=== PATIENT | female | born 1935 | race Caucasian/White ===

== ENCOUNTER → 2019-05-10 | Day surgery (SDC) | payer MEDICARE ==
[~2019-05-10] MED LIST: ATORVASTATIN CA20 MG PO; LIDOCAINE HCL 2% LOCAL INJ 5 ML SDV VIAL INJ ONE; LOSARTAN PO; MELOXICAM7.5 MG PO; METHYLPREDNISOLO4 MG PO; OXYBUTYNIN CHLOR5 MG PO; PANTOPRAZOLE 40 MG 10ML VIAL ONE; PROPOFOL IV EMULSION 10 MG/ML 20 ML VIAL ONE; PROPOFOL IV EMULSION 10 MG/ML 50 ML VIAL ONE; SODIUM CHLORIDE 0.9% 50ML 50 ML ONE
[2019-05-10 10:15] VITALS: BP 158/94
--- NOTE | 2019-05-10 11:23 | Operative Report ---
DATE OF PROCEDURE: 05/10/2019 SURGEON: Cody Thornton MD PROCEDURE PERFORMED: EGD with biopsies and esophageal dilatation. INDICATION FOR EGD: Dysphagia to solids. MEDICATIONS: The patient was done under MAC, please see anesthesiologist's note. PROCEDURE IN DETAIL: With the patient in left lateral decubitus position, a flexible fiberoptic Olympus gastroscope was introduced into the esophagus under direct visualization without any difficulty. There was some diffuse erythema noted in the distal esophagus. A mild stricture was noted at the GE junction that was dilated to size 52-[place]. The scope was then advanced with ease into the stomach. Several minute gastric ulcers were noted in the antrum, none of which was actively bleeding and there were no stigmata of recent hemorrhage. Biopsies were obtained. Pylorus was of normal contour and shape and was intubated with ease and the scope was advanced all the way to the second portion of the duodenum. The scope was then withdrawn slowly and mucosa overlying the second portion and duodenal bulb appeared to be within normal limits. The scope was then withdrawn back into the stomach and mucosa overlying the body was diffusely erythematous and edematous. Some biopsies were obtained and sent to stain for H pylori. The scope was then retroflexed into the stomach and mucosa overlying the fundus and cardia appeared to be within normal limits. The scope was then straightened out and was subsequently withdrawn. The patient tolerated the procedure well. IMPRESSION: 1. Distal esophagitis. 2. 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 3. Gastritis, biopsied. Biopsies sent to stain for H pylori. 4. Gastric ulcers, antrum, minute without active bleeding or stigmata of recent hemorrhage. Biopsies obtained. PLAN: Follow up histology. Initiate Protonix 40 mg one p.o. q.a.m. a.c. Cody Thornton MD [facility] [place]/[facility] /[id number] cc: Magnus Thornton MD
== END | disposition home or self-care (01) ==
LOC: OR 06:17 → EDBD 07:30
PROVIDERS: ATTEND Internal Medicine Gastroenterology
DX: K22.2 Esophageal obstruction (principal); K29.50 Unspecified chronic gastritis without bleeding; K25.9 Gastric ulcer, unspecified as acute or chronic, without hemorrhage or perforation; K20.9 Esophagitis, unspecified; R13.10 Dysphagia, unspecified; R12 Heartburn; R14.0 Abdominal distension (gaseous); R10.9 Unspecified abdominal pain; K59.09 Other constipation; R19.7 Diarrhea, unspecified; I10 Essential (primary) hypertension; Z01.810 Encounter for preprocedural cardiovascular examination
CPT/HCPCS: 43239; 43450; 88305; 88312; 88342; 93005; C9113; J2001; J2704 ×2

== ENCOUNTER → 2019-09-13 | Outpatient (CLI) | payer MEDICARE ==
[~2019-09-13] MED LIST changes: -LIDOCAINE HCL 2% LOCAL INJ 5 ML SDV VIAL INJ ONE; -PANTOPRAZOLE 40 MG 10ML VIAL ONE; -PROPOFOL IV EMULSION 10 MG/ML 20 ML VIAL ONE; -PROPOFOL IV EMULSION 10 MG/ML 50 ML VIAL ONE; -SODIUM CHLORIDE 0.9% 50ML 50 ML ONE
--- NOTE | 2019-09-13 11:11 | Diagnostic Imaging Report ---
EXAMINATION: CHEST 2 VIEWS INDICATION: Cough COMPARISON: None FINDINGS: LINES/TUBES:None LUNGS:Patchy airspace opacity at the left lower lobe and lingula partially silhouetting the left heart border and left hemidiaphragm. PLEURA:No pleural effusion or pneumothorax. MEDIASTINUM:The heart is enlarged. Atherosclerotic calcifications of the thoracic aorta. BONES/SOFT TISSUES:No acute osseous injury. ABDOMEN:No free air under the diaphragm. IMPRESSION: Left lingular and lower lobe opacity concerning for aspiration and/or pneumonia in the proper clinical setting. Cardiomegaly. RECOMMENDATIONS: PA and lateral chest radiograph in 6-8 weeks to assess for resolution and exclude underlying pulmonary lesion. The above findings were discussed with Dr. Thornton on 09/13/2019 11:03 AM, who responded indicating that the communication was understood. Signed by: Perfecto White MD on 09/13/2019 11:07 AM
== END ==
LOC: RAD 10:26
DX: R05 Cough (principal)
CPT/HCPCS: 71046

== ENCOUNTER → 2019-09-27 | Outpatient (CLI) | payer MEDICARE ==
--- NOTE | 2019-09-27 11:20 | Diagnostic Imaging Report ---
EXAMINATION: CHEST 2 VIEWS INDICATION: Cough COMPARISON: Chest radiograph 09/13/19. FINDINGS: LINES/TUBES:None LUNGS:Patchy airspace opacity at the left lower lobe and lingula partially silhouetting the left heart border and left hemidiaphragm. Mild patchy right basilar opacity. Central vascular congestin without pulmonary edema. PLEURA:No pleural effusion or pneumothorax. MEDIASTINUM:The heart is enlarged. Atherosclerotic calcifications of the thoracic aorta. BONES/SOFT TISSUES:No acute osseous injury. ABDOMEN:No free air under the diaphragm. IMPRESSION: Similar appearance of lower lung zone opacities, left greater than right, which may represent pneumonia in the appropriate clinical setting. Recommend follow-up chest radiograph in 6-8 weeks to assess for resolution. Cardiomegaly and central vascular congestion without pulmonary edema. Signed by: Dr. Kamar Duffy MD on 09/27/2019 11:16 AM
== END ==
LOC: RAD 10:12
DX: J18.9 Pneumonia, unspecified organism (principal)
CPT/HCPCS: 71046

== ENCOUNTER → 2019-11-20 | Outpatient (CLI) | payer MEDICARE ==
[~2019-11-20] MED LIST changes: +GADOBENATE DIMEGLUMINE 1 ML IV ONE
--- NOTE | 2019-11-20 10:36 | Diagnostic Imaging Report ---
EXAMINATION: MRI of the brain with and without contrast HISTORY: Evaluate for brain metastases, lung mass. COMPARISON: None. TECHNIQUE: Pre-contrast: Sagittal T2; axial T1-IR, T2, MPGR, DWI, FLAIR; Post-contrast: axial and coronal T1. Intravenous contrast: 10 mL of MultiHance. IMAGE QUALITY: Magnetic susceptibility artifact in the left superior parietal scalp mildly limits evaluation of some of the sequences. Poor visualization of the intravenous contrast, even though the contrast injection was uneventful , this partially may be explained by above-mentioned magnetic susceptibility artifact with incomplete fat saturation on the postcontrast images. FINDINGS: Parenchyma: 1. A few scattered white matter T2 and FLAIR hyperintense foci, most likely nonspecific chronic microvascular changes. No abnormal enhancement. 2. No mass or hemorrhage. No acute or chronic vascular insult. Skull: No abnormal signal intensity or enhancement. Major arteries: Expected flow voids present. Dural sinuses: Expected flow voids present. Ventricles: No hydrocephalus or displacement. Subarachnoid spaces: No abnormal signal intensity or enhancement. Brain volume: Slightly disproportionate bilateral parietal cortical volume loss. Otherwise within normal limits for patient's age. Foramen magnum: No mass, Chiari malformation, or basilar invagination. Sella: No gross mass, particularly no hypoenhancing foci within the pituitary gland. Paranasal/mastoid sinuses: Unremarkable. IMPRESSION: 1. No evidence of metastatic disease. 2. Mild nonspecific white matter chronic microvascular ischemic changes. 3. Slightly disproportionate bilateral parietal volume loss. Signed by: Dr. Ashley Butterfield M.D. on 11/20/2019 10:33 AM
== END ==
LOC: MRI 07:43
PROVIDERS: ATTEND Internal Medicine Critical Care Medicine
DX: C34.90 Malignant neoplasm of unspecified part of unspecified bronchus or lung (principal); R22.0 Localized swelling, mass and lump, head; C79.31 Secondary malignant neoplasm of brain
CPT/HCPCS: 70553; A9577

== ENCOUNTER → 2019-11-27 | Outpatient (CLI) | payer MEDICARE ==
[~2019-11-27] MED LIST changes: -GADOBENATE DIMEGLUMINE 1 ML IV ONE
[2019-11-27 13:21] LABS: INR 1.22; PROTHROMBIN TIME 16.2 seconds (11.9-14.5)
[2019-11-27 13:31] LABS: PARTIAL THROMBOPLASTIN TIME 28.1 seconds (23.8-35.5)
--- NOTE | 2019-11-27 14:05 | Diagnostic Imaging Report ---
Exam: Ultrasound guided thoracentesis Clinical History: Pleural effusion Consent: Benefits and risks were explained to the patient who gave consent to the procedure. Complication: None immediate Procedure: The patient was placed in uprightposition. The left posterior chest was prepped and draped in usual sterile fashion. 1% lidocaine was used as local anesthetic. Under ultrasound guidance, a thoracentesis catheter was inserted into the pleural cavity. Approximately 400 cc of clear yellow fluid was aspirated. The catheter was removed. The specimen was sent to the laboratory for further analysis. The patient tolerated the procedure well without any adverse reaction. A STAT chest x-ray was ordered. The patient left the department in stable condition. Impression: Ultrasound guided left thoracentesis. Signed by: Dr. Vignesh Randall MD on 11/27/2019 2:02 PM
--- NOTE | 2019-11-27 15:11 | Diagnostic Imaging Report ---
Exam: Chest one view Comparison: October 17, 2019 Clinical history: Status post thoracentesis Findings: There is persistent severe cardiomegaly with mild bilateral pulmonary vascular congestion. There is no evidence of pneumothorax. Minimal blunting of the left costophrenic sulcus is noted likely due to small effusion. The regional osseous structures are unremarkable. Impression: 1. Persistent cardiomegaly. Signed by: Dr. Vignesh Randall MD on 11/27/2019 3:08 PM
== END ==
LOC: US 12:21
DX: J90 Pleural effusion, not elsewhere classified (principal)
CPT/HCPCS: 32555; 36415; 71045; 85014; 85049; 85610; 85730

== ENCOUNTER → 2020-03-04 | Outpatient (CLI) | payer MEDICARE ==
--- NOTE | 2020-03-04 11:32 | Diagnostic Imaging Report ---
X-ray chest PA and lateral Comparison: 11/27/2019 History: Follow-up pneumonia. Known lung cancer. Findings: There is mild rotation of the patient on the frontal exam. Even accounting for the rotation, there is suggestion of a mediastinal shift to the right. There is further increase in the opacity in the left lower lung zone with obliteration of the left hemidiaphragm and the left cardiac border. There is also obliteration of the descending thoracic aortic interface. Air bronchograms are seen representing the central airways. Irregular lucency in the midst of this opacity suggests presence of aerated lung. There is suggestion of a small left pleural effusion. The remainder of the left upper lung field shows peribronchial thickening and vascular prominence raising the possibility of interstitial edema. The right lung shows peribronchial thickening and redistribution of blood flow suggesting mild interstitial edema. Multiple nodules measuring on the average 10 mm are seen in the right upper mid and lower lung zones. Other tiny nodules are also suspected. Some partially obscured by the pulmonary congestion. The left hilum cannot be evaluated partially obscured by the left lung opacity. The central airways show no mass lesion. With Central airways are unremarkable and unchanged. Heart size is difficult to evaluate because of being obscured. Aortic knob is atherosclerotic. Impression: Further worsening of the left lower lung zone consolidation with likely postobstructive pneumonia and now associated with mediastinal shift to the right. Multiple right lung nodules. The findings overall are consistent with the patient's history of a neoplastic process involving the left lower lung. Signed by: Louis Womack MD on 03/04/2020 11:29 AM
== END ==
LOC: RAD 10:25
DX: J18.9 Pneumonia, unspecified organism (principal); C34.90 Malignant neoplasm of unspecified part of unspecified bronchus or lung
CPT/HCPCS: 71046

== ENCOUNTER → 2020-03-13 | Outpatient (CLI) | payer MEDICARE ==
[~2020-03-13] MED LIST changes: +IOPAMIDOL 370 MG/ML 200 ML INFUS..BTL INJ ONE; +SODIUM CHLORIDE 0.9% 50ML 50 ML ONE
[2020-03-13 09:34] LABS: BLOOD UREA NITROGEN 18 mg/dL (7-26); BUN/CREATININE RATIO 21 (6-25); CREATININE, SERUM 0.85 mg/dL (0.57-1.11); EST GLOMERULAR FILTRATION RATE > 60 ML/MIN (60-)
--- NOTE | 2020-03-13 11:40 | Diagnostic Imaging Report ---
EXAM: CT Chest WITH intravenous contrast 03/13/2020 9:50 AM INDICATION: Lung cancer COMPARISON: Chest radiograph 03/04/2020, chest CT 11/12/2019 TECHNIQUE: Chest was scanned utilizing a multidetector helical scanner from the lung apex through the level of the adrenal glands after administration of IV contrast. Coronal and sagittal reformations were obtained. Routine protocol was performed. IV CONTRAST: 100mL Isovue 370 RADIATION DOSE: Total DLP: 430 mGy*cm. Dose modulation, iterative reconstruction, and/or weight based adjustment of the mA/kV was utilized to reduce the radiation dose to as low as reasonably achievable. COMPLICATIONS: None FINDINGS: LINES/ TUBES: None. LUNGS AND AIRWAYS: The central airways are patent. Again seen is a heterogeneously enhancing infiltrative mass involving the left lower lobe which encases the left lower lobe segmental bronchi. The mass is essentially unchanged in size compared to 11/12/2019. There is now more consolidation at the lingula encasing the lingular segmental bronchi. Additional pulmonary nodules have intervally increased in size, for example at the posterior right lower lobe (image 82) now measuring 1.9 cm compared to 1.7 cm previously and 1.8 cm compared to 1.5 cm (image 72). Additional scattered subcentimeter nodules throughout all lobes have also minimally increased in size. Lower lobe predominant interlobular septal thickening consistent with mild component of interstitial pulmonary edema. PLEURA: Interval increase in left pleural effusion, now moderate. No pneumothorax. HEART AND MEDIASTINUM: The right thyroid lobe appears unremarkable. Left thyroid remains absent. The extent of previously described mediastinal lymphadenopathy appears essentially unchanged. Right hilar lymphadenopathy appears slightly increased, now measuring up to 1.2 cm (image 53). Left hilar lymphadenopathy unchanged. Unchanged multichamber cardiomegaly. No pericardial effusion. Scattered atherosclerotic calcifications involve the thoracic aorta, coronary arteries, and proximal great vessels. UPPER ABDOMEN: New peripherally enhancing centrally hypodense masses in the right and left liver measure up to 1.6 cm and left liver (image 97) and 1.9 cm in the right liver (image 110). Partially visualized retroperitoneal lymphadenopathy measures up to 1.2 cm short axis. BONES: No acute osseous injury. SOFT TISSUES: Unremarkable. IMPRESSION: Redemonstration of heterogeneously enhancing left lower lobe infiltrative mass, now with involvement of the lingula. Interval increase in satellite nodules in the right and left lung, most notably at the posterior right lower lobe. Findings are compatible with progression of provided history of lung adenocarcinoma. New right and left hypodense peripherally enhancing liver masses concerning for metastatic disease. Retroperitoneal lymphadenopathy also concerning for metastasis. Interval increase in left pleural effusion. Cardiomegaly and mild interstitial pulmonary edema. Signed by: Perfecto White MD on 03/13/2020 11:37 AM
== END ==
LOC: CT 08:52
PROVIDERS: ATTEND Internal Medicine Critical Care Medicine
DX: C34.90 Malignant neoplasm of unspecified part of unspecified bronchus or lung (principal)
CPT/HCPCS: 36415; 71260; 82565; 84520; Q9967

== ENCOUNTER → 2020-03-17 | Outpatient (CLI) | payer MEDICARE ==
[~2020-03-17] MED LIST changes: -IOPAMIDOL 370 MG/ML 200 ML INFUS..BTL INJ ONE; -SODIUM CHLORIDE 0.9% 50ML 50 ML ONE
[2020-03-17 13:20] LABS: HEMOGLOBIN 10.6 g/dL (12.0-16.0)
[2020-03-17 13:38] LABS: INR 1.07; PROTHROMBIN TIME 14.6 seconds (11.9-14.5)
--- NOTE | 2020-03-17 15:10 | Diagnostic Imaging Report ---
EXAMINATION: CHEST SINGLE (PORTABLE) INDICATION: Post procedure COMPARISON: Chest CT of 03/13/2020, chest radiograph 03/04/2020 FINDINGS: LINES/TUBES:None LUNGS:The lungs are moderately inflated. There is left basilar opacity silhouetting the left andrei diaphragm. PLEURA:No pneumothorax status post left thoracentesis. MEDIASTINUM:The cardiomediastinal silhouette appears unchanged in size and shape. BONES/SOFT TISSUES:No acute osseous injury. ABDOMEN:No free air under the diaphragm. IMPRESSION: No pneumothorax status post left thoracentesis. Signed by: Perfecto White MD on 03/17/2020 3:07 PM
--- NOTE | 2020-03-17 15:11 | Diagnostic Imaging Report ---
PROCEDURE: Ultrasound-guided thoracentesis Procedural Personnel Attending physician(s): Perfecto White MD Fellow physician(s): None Resident physician(s): None Advanced practice provider(s): None Pre-procedure diagnosis: Lung cancer Post-procedure diagnosis: Same Indication: Pleural effusion with compromised respiration Additional clinical history: None Complications: No immediate complications. IMPRESSION: Ultrasound-guided thoracentesis with drainage of 700 mL of serous fluid. Plan: Resume care by clinical team. PROCEDURE SUMMARY: - Limited thoracic ultrasound - Ultrasound-guided thoracentesis - Additional procedure(s): None PROCEDURE DETAILS: Pre-procedure Consent: Informed consent for the procedure including risks, benefits and alternatives was obtained and time-out was performed prior to the procedure. Preparation: The site was prepared and draped using maximal sterile barrier technique including cutaneous antisepsis. Anesthesia/sedation Level of anesthesia/sedation: No sedation Anesthesia/sedation administered by: Not applicable Total intra-service sedation time (minutes): NA Limited thoracic ultrasound Limited thoracic ultrasound was performed using a curved transducer. A safe window for thoracentesis was identified. Left hemithorax findings: Moderate pleural effusion Right hemithorax findings: Not investigated Thoracentesis Local anesthesia was administered. The pleural space was accessed under real-time ultrasound guidance and fluid return confirmed position. The fluid was drained. The catheter was removed, and a sterile bandage was applied. Catheter placed: 5F Jose Post-drainage hemithorax findings: No visible pleural effusion Additional Details Additional description of procedure: None Equipment details: None Specimens removed: Pleural fluid Estimated blood loss (mL): Less than 10 Standardized report: [id number] Attestation Signer name: Perfecto White MD I attest that I was present for the entire procedure. I reviewed the stored images and agree with the report as written. Signed by: Perfecto White MD on 03/17/2020 3:08 PM
== END ==
LOC: US 12:54
DX: C34.90 Malignant neoplasm of unspecified part of unspecified bronchus or lung (principal)
CPT/HCPCS: 32555; 36415; 71045; 85014; 85049; 85610; 85730

== ENCOUNTER 2020-03-24 09:48 | Inpatient (IN) | payer MEDICARE, OTHER ==
[~2020-03-24] VITALS: Ht 152.4 cm; Wt 53.5 kg
--- OUTSIDE RECORDS SUMMARY | 2020-03-24 09:50 | XMS REPORT | Continuity of Care Document ---
Author Author [facility] t Organization [facility] Address [address] [place] [address] Phone Unavailable Care Team Providers Care Arnp Name Role Phone GERMAN THORNTON MD PCP GERMAN THORNTON Attphys Unavailable Radha BURNHAM Attphys Unavailable GERMAN THORNTON Admphys Unavailable Payers Payer Name Policy Type Policy Number Effective Date Expiration Date Memo ramos [facility] [id number] 2019 00:00:00 [facility] Medicare A & B [id number] 2018 00:00:00 [facility] Problems Condition Name Condition Details Condition Category Status Onset Date Resolution Date Last Treatment Date Treating Clinician Comments Source Pneumonia Pneumonia Problem Active [facility] Allergies, Adverse Reactions, Alerts This patient has no known allergies or adverse reactions. Medications Ordered Medication Name Filled Medication Name Start Date Stop Da te Current Medication? Ordering Clinician Indication Dosage Frequency Signature (SIG) Comments Components Source Atorvastatin Calcium 20 Mg Tablet Atorvastatin Calcium 20 Mg Tablet Yes 20 Bedtime [facility] Losartan Losartan Yes 50 Bedtime [facility] Methylprednisolone 4 Mg Tablet Methylprednisolone 4 Mg Tablet Yes 4 Daily [facility] Oxybutynin Chloride 5 Mg Tablet Oxybutynin Chloride 5 Mg Tablet Yes 10 Bedtime [facility] Meloxicam 7.5 Mg Tablet, 15 Mg Oral Meloxicam 7.5 Mg Tablet, 15 Mg Oral 2019-10-17 00:00:00 No 15 Bedtime [facility] Procedures Procedure Date / Time Performed Performing Clinician [facility] with biopsy 2019-10-17 00:00:00 EVELINE BURNHAM AB IM [facility] X-ray of chest, two views 2019-10-17 00:00:00 EVELINE BURNHAM BIM [facility] Computed tomography of chest with contrast 2019-10-14 00:00:00 GERMAN SANCHEZ [facility] X-ray of chest, two views 2019-10-13 00:00:00 MONALISA SNELL [facility] X-ray of chest, two views 2019-09-27 00:00:00 GERMAN THORNTON [facility] X-ray of chest, two views 2019-09-13 00:00:00 GERMAN THORNTON [facility] EGD BIOPSY SINGLE/MULTIPLE 2019-05-10 00:00:00 DIANE THORNTON [facility] DILATE ESOPHAGUS 1/MULT PASS 2019-05-10 00:00:00 DIANE THORNTON [facility] Encounters Start Date/Time End Date/Time Encounter Type Admission Type Attendi [facility] Care Department Encounter ID Source 2019-10-13 11:57:00 2019-10-17 19:31:00 Discharged Inpatient 1 [facility] [id number] [facility] 2019-09-27 10:12:00 2019-09-27 10:12:00 Registered Clinic 3 [facility] [id number] [facility] 2019-09-13 10:26:00 2019-09-13 10:26:00 Registered Clinic 3 GERMAN THORNTON [facility] [id number] [facility] 2019-05-10 06:17:00 2019-05-10 06:17:00 Registered Surgical Day Care [facility] [id number] [facility] Results Test Description Test Time Test Comments Results Result Comments Source THORACENTESIS/IMAGE GUIDED 2020-03-17 15:07:00 [facility] [address] [place] [address] Patient Name: BEBE SOTOMAYOR MR #: [id number] : 1935 Age/Sex: 84/F Req #: [id number] Adm Physician: Ordered by: GERMAN THORNTON MD Report #: [id number] Location: Room/Bed: Procedure: US/THORACENTESIS/IMAGE GUIDED Exam Date: 03/17/20 Exam Time: 1347 REPORT STATUS: Signed PROCEDURE: Ultrasound-guided thoracentesis Procedural Personnel Attending physician(s): Renetta Richter MD Fellow physician(s): None Resident physician(s): None Advanced practice provider(s): None Pre-procedure diagnosis: Lung cancer Post-procedure diagnosis: Same Indication: Pleural effusion with compromised respiration Additional clinical history: None Complications: No immediate complications. IMPRESSION: Ultrasound-guided thoracentesis with drainage of 700 mL of serous fluid. Plan: Resume care by clinical team. PROCEDURE SUMMARY: - Limited thoracic ultrasound - Ultrasound-guided thoracentesis - Additional procedure(s): None PROCEDURE DETAILS: Pre-procedure Consent: Informed consent for the procedure including risks, be nefits and alternatives was obtained and time-out was performed prior to the procedure. Preparation: The site was prepared and draped using maximal sterile barrier technique including cutaneous antisepsis. Anesthesia/sedation Level of anesthesia/sedation: No sedation Anesthesia/sedation administered by: Not applicable Total intra-service sedation time (minutes): NA Limited thoracic ultrasound Limited thoracic ultrasound was performed using a curved transducer. A safe window for thoracentesis was identified. Left hemithorax findings: Moderate pleural effusion Right hemithorax findings: Not investigated Thoracentesis Local anesthesia was administered. The pleural space was accessed under real-time ultrasound guidance and fluid return confirmed position. The fluid was drained. The catheter was removed, and a sterile bandage was applied. Catheter placed: 5F Jose Post-drainage hemithorax findings: No visible pleural effusion Additional Details Addit ional description of procedure: None Equipment details: None Specimens removed: Pleural fluid Estimated blood loss (mL): Less than 10 Standardized report: SIR_Thoracentesis_v3 Attestation Signer name: Renetta Richter MD I attest that I was present for the entire procedure. I reviewed the stored images and agree with the report as written. Signed by: Renetta Richter MD on 03/17/2020 3:08 PM Dictated By: RENETTA RICHTER MD 1508 Transcribed By: CARLTON on 03/17/20 1508 COPY TO: GERMAN THORNTON MD CHEST SINGLE (PORTABLE) 2020-03-17 15:06:00 [place] [address] Patient Name: BEBE SOTOMAYOR MR #: [id number] : 1935 Age/Sex: 84/F Req #: [id number] Adm Physician: Ordered by: RENETTA RICHTER MD Report #: [id number] Location: US Room/Bed: Procedure: DX/CHEST SINGLE (PORTABLE) Exam Date: 03/17/20 Exam Time: 1450 REPORT STATUS: Signed EXAMINATION: CHEST SINGLE (PORTABLE) INDICATION: Post procedure COMPARISON: Chest CT of 03/13/2020, chest radiograph 03/04/2020 FINDINGS: LINES/TUBES:None LUNGS:The lungs are moderately inflated. There is left basilar opacity silhouetting the left andrei diaphragm. PLEURA:No pneumothorax status post left thoracentesis. MEDIASTINUM:The cardiomediastinal silhouette appears unchanged in size and shape. BONES/SOFT TISSUES:No acute osseous injury. ABDOMEN:No free air under the diaphragm. IMPRESSION: No pneumothorax status post left thoracentesis. Signed by: Renetta Richter MD on 03/17/2020 3:07 PM Dictated By: RENETTA RICHTER MD 1507 Transcribed By: CARLTON on 03/17/20 1507 COPY TO: RENETTA RICHTER MD CT CHEST W 2020-03-13 11:19:00 [place] [address] Patient Name: BEBE SOTOMAYOR MR #: [id number] : 1935 Age/Sex: 84/F Req #: [id number] Adm Physician: Ordered by: EVELINE BURNHAM MD Report #: [id number] Location: CT Room/Bed: Procedure: [id number] CT/CT CHEST W Exam Date: 03/13/20 Exam Time: 0950 REPORT STATUS: Signed EXAM: CT Chest WITH intravenous contrast 03/13/2020 9:50 AM INDICATION: Lung cancer COMPARISON: Chest radiograph 03/04/2020, chest CT 11/12/2019 TECHNIQUE: Chest was scanned utilizing a multidetector helical scanner from the lung apex through the level of the adrenal glands after administration of IV contrast. Coronal and sagittal reformations were obtained. Routine protocol was performed. IV CONTRAST: 100mL Isovue 370 RADIATION DOSE: Total DLP: 430 mGy*cm. Dose modulation, iterative reconstruction, and/or weight based adjustment of the mA/kV was utilized to reduce the radiation dose to as low as reasonably achievable. COMPLICATIONS: None FINDINGS: LINES/ TUBES: None. LUNGS AND AIRWAYS: The central airways are patent. Again seen is a heterogeneously enhancing infiltrative mass involving the left lower lobe which encases the left lower lobe segmental bronchi. The mass is essentially unchanged in size compared to 11/12/2019. There is now more consolidation at the lingula encasing the lingular segmental bronchi. Additional pulmonary nodules have intervally increased in size, for example at the posterior right lower lobe (image 82) now measuring 1.9 cm compared to 1.7 cm previously and 1.8 cm compared to 1.5 cm (image 72). Additional scattered subcentimeter nodules throughout all lobes have also minimally increased in size. Lower lobe predominant interlobular septal thickening consistent with mild component of interstitial pulmonary edema. PLEURA: Interval increase in left pleural effusion, now moderate. No pneumothorax. HEART AND MEDIASTINUM: The right thyroid lobe appears unremarkable. Left thyroid remains absent. The extent of previously described mediastinal lymphadenopathy appears essentially unchanged. Right hilar lymphadenopathy appears slightly increased, now measuring up to 1.2 cm (image 53). Left hilar lymphadenopathy unchanged. Unchanged multichamber cardiomegaly. No pericardial effusion. Scattered atherosclerotic calcifications involve the thoracic aorta, coronary arteries, and proximal great vessels. UPPER ABDOMEN: New peripherally enhancing centrally hypodense masses in the right and left liver measure up to 1.6 cm and left liver (image 97) and 1.9 cm in the right liver (image 110). Partially visualized retroperitoneal lymphadenopathy measures up to 1.2 cm short axis. BONES: No acute osseous injury. SOFT TISSUES: Unremarkable. IMPRE SSION: Redemonstration of heterogeneously enhancing left lower lobe infiltrative mass, now with involvement of the lingula. Interval increase in satellite nodules in the right and left lung, most notably at the posterior right lower lobe. Findings are compatible with progression of provided history of lung adenocarcinoma. New right and left hypodense peripherally enhancing liver masses concerning for metastatic disease. Retroperitoneal lymphadenopathy also concerning for metastasis. Interval increase in left pleural effusion. Cardiomegaly and mild interstitial pulmonary edema. Signed by: Renetta Richter MD on 03/13/2020 11:37 AM Dictated By: RENETTA RICHTER MD 113 Transcribed By: CARLTON on 03/13/20 113 COPY TO: EVELINE BURNHAM MD, [facility] CHEST 2 VIEWS 2020-03-04 11:18:00 [place] [address] Patient Name: BEBE SOTOMAYOR MR #: [id number] : 1935 Age/Sex: 84/F Req #: [id number] Adm Physician: Ordered by: GERMAN THORNTON MD Report #: [id number] Location: [facility] Room/Bed: Procedure: [id number] DX/CHEST 2 VIEWS Exam Date: 03/04/20 Exam Time: 1050 REPORT STATUS: Signed X-ray chest PA and lateral Comparison: 11/27/2019 History: Follow-up pneumonia. Known lung cancer. Findings: There is mild rotation of the patient on the frontal exam. Even accounting for the rotation, there is suggestion of a mediastinal shift to the right. There is further increase in the opacity in the left lower lung zone with obliteration of the left hemidiaphragm and the left cardiac border. There is also obliteration of the descending thoracic aortic interface. Air bronchograms are seen representing the central airways. Irregular lucency in the midst of this opacity suggests presence of aerated lung. There is suggestion of a small left pleural effusion. The remainder of the left upper lung field shows peribronchial thickening and vascular prominence raising the possibility of interstitial edema. The right lung shows peribronchial thickening and redistribution of blood flow suggesting mild interstitial edema. Multiple nodules measuring on the average 10 mm are seen in the right upper mid and lower lung zones. Other tiny nodules are also suspected. Some partially obscured by the pulmonary congestion. The left hilum cannot be evaluated partially obscured by the left lung opacity. The central airways show no mass lesion. With Central airways are unremarkable and unchanged. Heart size is difficult to evaluate because of being obscured. Aortic knob is atherosclerotic. Impression: Further worsening of the left lower lung zone consolidation with likely postobstructive pneumonia and now associated with mediastinal shift to the right. Multiple right lung nodules. The findings overall are consistent with the patient's history of a neoplastic process involving the left lower lung. Signed by: Louis Lundberg MD on 03/04/2020 11:29 AM Dictated By: LOUIS LUNDBERG MD 112 Transcribed By: CARLTON on 03/04/20 112 COPY TO: GERMAN THORNTON MD CHEST SINGLE (PORTABLE) 2019-11-27 15:07:00 [place] [address] Patient Name: BEBE SOTOMAYOR MR #: [id number] : 1935 Age/Sex: 84/F Req #: [id number] Adm Physician: Ordered by: JANELL RANDALL MD Report #: [id number] Location: US Room/Bed: Procedure: [id number] DX/CHEST SINGLE (PORTABLE) Exam Date: 11/27/19 Exam Time: 1400 REPORT STATUS: Signed Exam: Chest one view Comparison: October 17, 2019 Clinical history: Status post thoracentesis Findings: There is persistent severe cardiomegaly with mild bilateral pulmonary vascular congestion. There is no evidence of pneumothorax. Minimal blunting of the left costophrenic sulcus is noted likely due to small effusion. The regional osseous structures are unremarkable. Impression: 1. Persistent cardiomegaly. Signed by: Dr. Vignesh Randall MD on 11/27/2019 3:08 PM Dictated By: JANELL RANDALL MD 07 Transcribed By: CARLTON on 11/27/191507 COPY TO: JANELL DEL CID MD THORACENTESIS/IMAGE GUIDED 2019-11-27 14:01:00 [place] [address] Patient Name: BEBE SOTOMAYOR MR #: [id number] : 1935 Age/Sex: 84/F Req #: [id number] [facility] Physician: Ordered by: GERMAN THORNTON MD Report #: [id number] Location: Room/Bed: Procedure: [id number] US/THORACENTESIS/IMAGE GUIDED Exam Date: 11/27/19 Exam Time: 1334 REPORT STATUS: Signed Exam: Ultrasound guided thoracentesis Clinical History: Pleural effusion Consent: Benefits and risks were explained to the patient who gave consent to the procedure. Complication: None immediate Procedure: The patient was placed in uprightposition. The left posterior chest was prepped and draped in usual sterile fashion. 1% lidocaine was used as local anesthetic. Under ultrasound guidance, a thoracentesis catheter was inserted into the pleural cavity. Approximately 400 cc of clear yellow fluid was aspirated. The catheter was removed. The specimen was sent to the laboratory for further analysis. The patient tolerated the procedure well without any adverse reaction. A STAT chest x-ray was ordered. The patient left the department in stable condition. Impression: Ultrasound guided left thoracentesis. Signed by: Dr. Vignesh Randall MD on 11/27/2019 2:02 PM Dictated By: JANELL RANDALL MD 01 Transcribed By: CARLTON on 11/27/191401 COPY TO: GERMAN THORNTON MD - [facility] 2019-11-25 16:01:00 FAX: Eveline Ca MD [phone] North: St: REG FAX: Mae Chacko [phone] Name: BEBE SOTOAMYOR [facility] : 1935 Age/S: 84/F [address] [facility] Unit #: [id number] Loc: [place] [address] Phys: Eveline Burnham MD Acct: [id number] Dis Date: Status: REG CLI PHONE #: [phone] Exam Date: 11/25/2019 1115 FAX #: [phone] Reason: C34.90 EXAMS: CPT CODE: [id number] PET/CT TUMOR SK MIDTH 15843 HISTORY: Adenocarcinoma of the lung. COMPARISON: None available. PET/CT SCAN: 11.6 mCi of FDG administered. Images obtained from the skull base to the upper thighs 1 hour postinjection. Blood glucose level = 119 mg/dL. Location: [facility]. HEAD AND NECK: Intense uptake within the brain parenchyma limited evaluation. Physiologic pharyngeal uptake. CHEST: Large area of increased uptake measuring 6.7 x 6 x 7 cm in the left lower lobe with compressive left lower lobe atelectasis and small effusion. SUV range up to 9.5 consistent with primary bronchogenic carcinoma. Multiple left lower lobe lung nodules measuring up to 2 cm with SUV uptake ranging up to 4.5. Extensive pathologic adenopathy measuring up to 1.6 cm in the AP window, right paratracheal and subcarinal location with SUV ranging up to 4.8 consistent with metastases. No chest wall and metastatic disease. No uptake within the breast parenchyma either. ABDOMEN: No liver or adrenal metastases. Extensive uptake along the bilateral abdominal wall especially on the right side in the perihepatic and perisplenic locations measuring up to 5 cm. SUV uptake ranging up to 4. Multiple pathologic retroperi toneal lymph node beginning at the level of the celiac artery measuring up to 2 with SUV ranging up to 4. Similar lymph nodes in the level of the SMA, para-aortic and paracaval location. No abnormal uptake within the spleen or the pancreas. No abnormal uptake within the kidneys. Minimal excretion into the bowel. PELVIS: Minimal excretion into the bowel. Excretion into the urinary bladder. Stasis of radiopharmaceutical within the left ureter MUSCULOSKELETAL: No metastatic disease. IMPRESSION: 7 x 6.7 x 6 cm mass with atelectasis in the left lower lobe with SUV ranging up to 9.5 consistent with patient's adenocarcinoma. Bilateral lower lobe lung nodules measuring up to 2 cm with SUV uptake ranging up to 4 consistent with metastases. Multiple mediastinal metastatic PAGE 1 Signed Report (CONTINUED) FAX: Eveline Ca MD [phone] North: St: REG FAX: Mae Chacko [phone] [facility] : 1935 Age/S: 84/F [address] [facility] Unit #: [id number] Loc: [place] [address] Phys: Eveline Burnham MD Acct: [id number] Dis Date: Status: REG CLI PHONE #: [phone] Exam Date: 11/25/2019 1115 FAX #: [phone] Reason: C34.90 EXAMS: CPT CODE: [id number] PET/CT TUMOR SK BS MIDTH 81891 <Continued> foci measuring up to 1.6 mm with SUV uptake ranging up to 4.8. Multiple retroperitoneal adenopathy at the celiac level, SMA and in the para-aortic and paracaval location measuring up to 2 cm with SUV uptake ranging up to 4. Multiple metastatic foci suspected to the peritoneal lining of the upper abdomen along the perihepatic and perisplenic location measuring up to 5 cm with SUV uptake ranging up to 4. at 1601 Reported and signed by: Bruce Selby M.D. CC: Eveline Burnham MD; Mae Ryan MD Technologist: Pavithra Suarez RT(N) Trnscrd Date/Time/By: 11/25/2019 (1601) : By: [email or web address] Orig Print D/T: S: 11/25/2019 (2067) PAGE 2 Signed Report MRI BRAIN WO 2019-11-20 10:21:00 [place] [address] Patient Name: BEBE SOTOMAYOR MR #: [id number] : 1935 Age/Sex: 84/F Req #: [id number] Adm Physician: Ordered by: EVELINE BURNHAM MD Report #: [id number] Location: MRI Room/Bed: Procedure: [id number] MRI/MRI BRAIN WOW Exam Date: Exam Time: REPORT STATUS: Signed EXAMINATION: MRI of the brain with and without contrast HISTORY: Evaluate for brain metastases, lung mass. COMPARISON: None. TECHNIQUE: Pre-contrast: Sagittal T2; axial T1-IR, T2, MPGR, DWI, FLAIR; Post- contrast: axial and coronal T1. Intravenous contrast: 10 mL of MultiHance. IMAGE QUALITY: Magnetic susceptibility artifact in the left superior parietal scalp mildly limits evaluation of some of the sequences. Poor visualization of the intravenous contrast, even though the contrast injection was uneventful , this partially may be explained by above-mentioned magnetic susceptibility artifact with incomplete fat saturation on the postcontrast images. FINDINGS: Parenchyma: 1. A few scattered white matter T2 and FLAIR hyperintense foci, most likely nonspecific chronic microvascular changes. No abnormal enhancement. 2. No mass or hemorrhage. No acute or chronic vascular insult. Skull: No abnormal signal intensity or enhancement. Major arteries: Expected flow voids present. Dural sinuses: Expected flow voids present. Ventricles: No hydrocephalus or displacement. Subarachnoid spaces: No abnormal signal intensity or enhancement. Brain volume: Slightly disproportionate bilateral parietal cortical volume loss. Otherwise within normal limits for patient's age. Foramen magnum: No mass, Chiari malformation, or basilar invagination. Sella: No gross mass, particularly no hypoenhancing foci within the pituitary gland. Paranasal/mastoid sinuses: Unremarkable. IMPRESSION: 1. No evidence of metastatic disease. 2. Mild nonspecific white matter chronic microvascular ischemic changes. 3. Slightly disproportionate bilateral parietal volume loss. Signed by: Dr. Ashley Butterfield M.D. on 11/20/2019 10:33 AM Dictated By: ASHLEY BUTTERFIELD MD 1033 Transcribed By: CARLTON on 11/20/19 1033 COPY TO: EVELINE BURNHAM MD, ABIM CT CHEST W 2019-11-12 15:18:00 [place] [address] Patient Name: BEBE SOTOMAYOR MR #: [id number] : 1935 Age/Sex: 83/F Req #: [id number] [facility] Physician: Ordered by: GERMAN THORNTON MD Report #: [id number] Location: CT Room/Bed: Procedure: [id number] CT/CT CHEST W Exam Date: 11/12/19 Exam Time: 1410 REPORT STATUS: Signed EXAMINATION: CT scan of the chest with contrast. TECHNIQUE: Spiral CT images of the chest were performed from the lung apices to the level of the adrenal glands after the intravenous administration of 100 cc of Isovue-370. Coronal and sagittal reformatted images were obtained. COMPARISON: CT chest with contrast 10/14/2019 CLINICAL HISTORY:Pneumonia, gangrene, necrosis of the lung DISCUSSION: LINES/TUBES: None. LUNGS AND AIRWAYS: Essentially no significant interval change in consolidation of the majority of the left lower lobe with central areas of hypoattenuation with an adjacent 1.5 cm satellite nodule abutting the lateral pleural surface. Central air bronchograms are noted; however, the distal segmental bronchi are collapsed or filled with debris. Groundglass opacities with interlobular septal thickening involving the superior segment of the left lower lobe are also not significantly changed. Multiple bilateral pulmonary nodules are again noted for example a 6 mm nodule posteriorly within the right upper lobe on series 5 image 36, a 1.5 cm juxtapleural nodule in the medial segment of the right middle lobe (previously 1.2 cm), and a 1.7 cm juxtapleural nodule in the posterior basal segment of the right lower lobe (unchanged in size). Tandem nodules, also juxtapleural, more superiorly within the right lower lobe measure 9 and 10 mm in diameter, previously 6 and 6 mm. There is a new 5 mm nodule an teriorly within the left upper lobe seen on series 5 image 41 and stable bandlike opacity in the inferior lingula. Airways are otherwise normal. PLEURA: Stable moderate intermediate attenuation left pleural effusion (20-25 Hounsfield units), without pleural thickening or enhancement. No pneumothorax. HEART AND MEDIASTINUM: Status post left hemithyroidectomy. No ectasia or aneurysmal dilatation of the thoracic aorta. Great vessel origins are of normal caliber and configuration. Pulmonary outflow tract is of normal caliber. No central pulmonary embolus. Unchanged moderate pericardial effusion without right ventricular compression. Atherosclerotic left main coronary artery calcifications. LYMPH NODES: Hilar and mediastinal lymphadenopathy is slightly more conspicuous compared to prior. For example a highest mediastinal lymph node now measures 7 mm short axis, previously 6 mm. An adjacent lymph node now measures 8 mm short axis, previously 5 mm short axis. A prevascular lymph node measures 8 mm short axis, previously 4 mm. A right upper paratracheal lymph node measures 12 mm short axis, previously 9 mm. A right lower paratracheal lymph node measures 1.5 cm short axis, previously 1.3 cm. ABDOMEN: Visualized portions of the liver, spleen, pancreas, and adrenals are remarkable only for multiple calcified granulomata in the liver. Gastrohepatic lymph nodes have also increased in size in the interim, now measuring 11-12 mm short axis. Lymph nodes adjacent to the SMA origin are also increased in size, now measuring 9 mm and 6 mm short axis, previously 4 and 3 mm. 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 BONES AND SOFT TISSUES: No osseous destructive lesions or focal soft tissue abnormalities. Dystrophic calcifications in the left breast IMPRESSION: Essentially stable appearance of left lower lobe consolidation with centrally hypodense and partially necrotic areas, with associated moderate pleural and pericardial effusions relative to 10/14/2019. Interval marginal increase in size of several bilateral additional pulmonary nodules and interval progression of mediastinal and subdiaphragmatic/upper abdominal lymphadenopathy. 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 Correlation with bronchoscopic results including any tissue diagnosis obtained on 10/17/2019 is suggested. Signed by: Dr. Angelia Gandara M.D. on 11/12/2019 3:41 PM Dictated By: ANGELIA GANDARA MD 40 Transcribed By: CARLTON on 11/12/191540 COPY TO: GERMAN THORNTON MD FLUORO ASIST LITHO/BRONCH/ERCP 2019-10-18 09:04:00 [place] [address] Patient Name: BEBE SOTOMAYOR MR #: [id number] : 1935 Age/Sex: 83/F Req #: [id number] Adm Physician: GERMAN THORNTON MD Ordered by: EVELINE BURNHAM MD Report #: [id number] Location: [facility] Room/Bed: [facility] Procedure: [id number] DX/FLUORO ASIST LITHO/BRONCH/ERCP Exam Date: 10/17/19 Exam Time: 1103 REPORT STATUS: Signed EXAMINATION: FLUORO ASIST LITHO/BRONCH/ERCP INDICATION: Left lower lobe lesion COMPARISON: None FINDINGS: Fluoro Time: 41 seconds Total Dose 14.2 mGy Fluoroscopic guidance was provided for bronchoscopy/left lower lobe biopsy. Images show bronchoscope projecting over the left lower lung. IMPRESSION: Fluoroscopic guidance for bronchoscopy as above. Signed by: Renetta Richter MD on 10/18/2019 9:08 AM Dictated By: RENETTA RICHTER MD 7 Transcribed By: CARLTON on 10/18/19907 COPY TO: EVELINE BURNHAM MD, [facility] CHEST 2 VIEWS 2019-10-17 18:35:00 [place] [address] Patient Name: BEBE SOTOMAYOR MR #: [id number] : 1935 Age/Sex: 83/F Req #: [id number] Adm Physician: GERMAN THORNTON MD Ordered by: EVELIEN BURNHAM MD Report #: [id number] Location: MED/SURG3 Room/Bed: [facility] Procedure: [id number] DX/CHEST 2 VIEWS Exam Date: Exam Time: REPORT STATUS: Signed EXAMINATION: CHEST 2 VIEWS INDICATION: s/p thoracentesis, loculations remnant surmised COMPARISON: 10/17/2019 at 1238 hours. FINDINGS: TUBES and LINES: Left PICC line terminates at the superior cavoatrial junction LUNGS: There is mild prominence of the central pulmonary vasculature, consistent with pulmonary venous congestion. PLEURA: No pneumothorax. Slight decrease in density in the lower left hemithorax may reflect status post thoracentesis. HEART AND MEDIASTINUM: Cardiac size is moderately enlarged. BONES AND SOFT TISSUES: No acute osseous lesion. Soft tissues are unremarkable. UPPER ABDOMEN: No free air under the diaphragm. IMPRESSION: No pneumothorax. Slight decrease in density in the lower left hemithorax may reflect status post thoracentesis. Signed by: Dr. Celia Harrison M.D. on 10/17/2019 6:38 PM Dictated By: DRU HARRISON MD, MD 37 Transcribed By: CARLTON on 10/17/191837 COPY TO: EVELINE BURNHAM MD, ABIM Sodium Level 2019-10-17 13:19:00 Test Item Sodium Level (test code = 2951-2) 137 136-145 [facility] Bcgop3607-94-03 13:19:00* Test Item Value Reference Range Interpretation Comments Potassium Level (test code = 2823-3) 3.9 3.5-5.1 [facility] CampusChloride Cunxp6382-64-23 13:19:00* Test Item Value Reference Range Interpretation Comments Chloride Level (test code = 2075-0) 103 98-107 [facility] CampusCarbon Dioxide Szlqu9033-18-79 13:19:00* Test Item Value Reference Range Interpretation Comments Carbon Dioxide Level (test code = 2028-9) 22 22-29 [facility] CampusAnion Ekg4128-52-84 13:19:00* Test Item Value Reference Range Interpretation Comments Anion Gap (test code = 01372-7) 15.9 8-16 [facility] CampusBlood Urea Ytsnihgr9976-59-31 13:19:00* Test Item Value Reference Range Interpretation Comments Blood Urea Nitrogen (test code = 3094-0) 21 7-26 [facility] CampusCreatinine2020-01-02 13:19:00* Test Item Value Reference Range Interpretation Comments Creatinine (test code = 2160-0) 0.70 0.57-1.11 [facility] CampusBUN/Creatinine Pnytn8835-89-33 13:19:00* Test Item Value Reference Range Interpretation Comments BUN/Creatinine Ratio (test code = 3097-3) 30 6-25 H [facility] CampusEstimat Glomerular Filtration Rate 2019-10-17 13:19:00* Test Item Value Reference Range Interpretation Comments Estimat Glomerular Filtration Rate (test code = 422044618) > 60 >60 Ranges were taken from the National Kidney Disease Education Program and the [facility] Kidney Foundation literature.Reference ranges:60 or greater: Khzsqe53-02 ( for 3 consecutive months): Chronic kidney disease 15 or less: Kidney failureThe Hospitals of Providence Sierra CampusGlucose Zmtbg1264-51-76 13:19:00* Test Item Value Reference Range Interpretation Comments Glucose Level (test code = DSG8868) 117 74-118 [facility] CampusCalcium Tuxzs9870-84-10 13:19:00* Test Item Value Reference Range Interpretation Comments Calcium Level (test code = 76652-9) 8.9 8.4-10.2 [facility] CampusWhite Blood Vgtgb0004-47-10 13:05:00* Test Item Value Reference Range Interpretation Comments White Blood Count (test code = 6690-2) 11.30 4.8-10.8 H [facility] CampusRed Blood Irsbp8521-28-75 13:05:00* Test Item Value Reference Range Interpretation Comments Red Blood Count (test code = 789-8) 4.06 3.6-5.1 [facility] CampusHemoglobin2020-01-02 13:05:00* Test Item Value Reference Range Interpretation Comments Hemoglobin (test code = 66964-4) 11.2 12.0-16.0 L [facility] CampusHematocrit2020-01-02 13:05:00* Test Item Value Reference Range Interpretation Comments Hematocrit (test code = 4544-3) 34.4 34.2-44.1 [facility] CampusMean Corpuscular Jkhgpy0593-85-90 13:05:00* Test Item Value Reference Range Interpretation Comments Mean Corpuscular Volume (test code = 787-2) 84.7 81-99 [facility] CampusMean Corpuscular Ogoavraaya3619-87-19 13:05:00* Test Item Value Reference Range Interpretation Comments Mean Corpuscular Hemoglobin (test code = 785-6) 27.6 28-32 L [facility] CampusMean Corpuscular Hemoglobin Concent 2019-10-17 13:05:00* Test Item Value Reference Range Interpretation Comments Mean Corpuscular Hemoglobin Concent (test code = 786-4) 32.6 31-35 [facility] CampusRed Cell Distribution Votjy5876-06-39 13:05:00* Test Item Value Reference Range Interpretation Comments Red Cell Distribution Width (test code = 91451-5) 14.6 11.7 -14.4 H [facility] CampusPlatelet Gpjav4036-04-79 13:05:00* Test Item Value Reference Range Interpretation Comments Platelet Count (test code = 777-3) 317 140360 [facility] CampusNeutrophils (%) (Auto)2019-10-17 13:05:00 * Test Item Value Reference Range Interpretation Comments Neutrophils (%) (Auto) (test code = 89309-5) 93.7 38.7-80.0 H [facility] CampusLymphocytes (%) (Auto)2019-10-17 13:05:00 * Test Item Value Reference Range Interpretation Comments Lymphocytes (%) (Auto) (test code = 736-9) 2.9 18.0-39.1 L [facility] CampusMonocytes (%) (Auto)2019-10-17 13:05:00* Test Item Value Reference Range Interpretation Comments Monocytes (%) (Auto) (test code = 5905-5) 2.5 4.4-11.3 L [facility] CampusEosinophils (%) (Auto)2019-10-17 13:05:00 * Test Item Value Reference Range Interpretation Comments Eosinophils (%) (Auto) (test code = 713-8) 0.0 0.0-6.0 [facility] CampusBasophils (%) (Auto)2019-10-17 13:05:00* Test Item Value Reference Range Interpretation Comments Basophils (%) (Auto) (test code = 706-2) 0.2 0.0-1.0 [facility] CampusIM GRANULOCYTES %2019-10-17 13:05:00* Test Item Value Reference Range Interpretation Comments IM GRANULOCYTES % (test code = IM GRANULOCYTES %) 0.7 0.0- 1.0 [facility] CampusNeutrophils # (Auto)2019-10-17 13:05:00* Test Item Value Reference Range Interpretation Comments Neutrophils # (Auto) (test code = 751-8) 10.6 2.1-6.9 H [facility] CampusLymphocytes # (Auto)2019-10-17 13:05:00* Test Item Value Reference Range Interpretation Comments Lymphocytes # (Auto) (test code = 67032-1) 0.3 1.0-3.2 L [facility] CampusMonocytes # (Auto)2019-10-17 13:05:00* Test Item Value Reference Range Interpretation Comments Monocytes # (Auto) (test code = 742-7) 0.3 0.2-0.8 [facility] CampusEosinophils # (Auto)2019-10-17 13:05:00* Test Item Value Reference Range Interpretation Comments Eosinophils # (Auto) (test code = 711-2) 0.0 0.0-0.4 [facility] CampusBasophils # (Auto)2019-10-17 13:05:00* Test Item Value Reference Range Interpretation Comments Basophils # (Auto) (test code = 704-7) 0.0 0.0-0.1 [facility] CampusAbsolute Immature Granulocyte (auto 2019-10-17 13:05:00* Test Item Value Reference Range Interpretation Comments Absolute Immature Granulocyte (auto (thais t code = Absolute Immature Granulocyte (auto) 0.08 0-0.1 [facility] CampusCHEST SINGLE (PORTABLE)2019-10-17 12:49:00 [place] [address] Patient Name: BEBE SOTOMAYOR MR #: [id number] : 1935 Age/Sex: 83/F Req #: [id number] Adm Physician: GERMAN THORNTON MD Ordered by: EVELINE BURNHAM MD Report #: [id number] Location: MED/SURG3 Room/Bed: [facility] Procedure: [id number] D X/CHEST SINGLE (PORTABLE) Exam Date: 10/17/19 Exam T giles: 1235 REPORT STATUS: Signed EXAMINATION: CHEST SINGLE (PORTABLE) INDICATION: Postprocedural C OMPARISON: Chest CT of 10/14/2019 FINDINGS: LINES/TUBES:Left PICC line terminates at the superior cavoatrial junction. EKG leads overlie the ch est. LUNGS:There is left basilar opacity silhouetting the left andrei diaphra gm. PLEURA:No pleural effusion or pneumothorax. MEDIASTINUM:Cardiomedi astinal silhouette is stably enlarged. Atherosclerotic calcifications of the t horacic aorta. BONES/SOFT TISSUES:No acute osseous injury. ABDOMEN:No free air under the diaphragm. IMPRESSION: No pneumothorax status post bronchoscopy and lung biopsy. Left basilar airspace consolidation, with di fferential diagnosis of infectious versus neoplastic etiologies as described o n chest CT of 10/14/2019. Signed by: Renetta Richter MD on 10/17/2019 12:52 PM Dictated By: RENETTA RICHTER MD 1252 COPY TO: ARIANNE BURNHAM MD, ABIM Vancomycin Level Cxoijo8999-79-87 21:09:00* Test Item Value Reference Range Interpretation Comments Vancomycin Level Trough (test code = 4092-3) 9.1 5.0-10.0 [facility] CampusBlood Nlhfckb5885-80-54 12:24:00* Test Item Value Reference Range Interpretation Comments Blood Culture (test code = 16092306) NO GROWTH AFTER 72 HOURS [facility] CampusBedside Zckzfdz7559-91-19 20:34:00* Test Item Value Reference Range Interpretation Comments Bedside Glucose (test code = 76776-2) 127 70-120 H Meter ID: [id number] Hospitals of Providence Sierra CampusCT CHEST I8252-65-55 19:13:00 [place] [address] Patient Name: BEBE SOTOMAYOR MR #: [id number] : 1935 Age/Sex: 83/F Req #: [id number] Adm Physician: GERMAN THORNTON MD Ordered by: GERMAN THORNTON MD Report #: [id number] Location: MED/SURG3 Room/Bed: 290-1 Procedure: [id number] CT /CT CHEST W Exam Date: 10/14/19 Exam Time: 1810 REPORT STATUS: Signed EXAM: CT Chest WITH contrast 10/14/2019 3:25 PM INDICATION: Pneumonia. COMPARISON: None TECHNIQUE: Chest was scanned utilizing a multidetector helical scanner from t he lung apex through the level of the adrenal glands without administration of IV contrast. Coronal and sagittal reformations were obtained. Routine protocol was performed. IV CONTRAST: 100 cc Isovue 300 RADI ATION DOSE: Total DLP: 340.22 mGy*cm Estimated effective dose: (DL P x 0.014 x size factor) mSv COMPLICATIONS: None FINDINGS: LINES/ TUBES: Left upper extremity PICC LUNGS AND AIRWAYS: The left lower lobe is collapsed with diffuse heterogeneity. There is thickening of the sub pleural coronary interstitium adjacent to it. Noncalcified pleural-based nodul e in the right lower lobe posteriorly measures 6.3 mm on image 69. 2 mm subple ural nodule in the right upper lobe laterally on image 31. 5 mm noncalcified n odule in the posterior right upper lobe on image 46. 1.7 cm pleural-based nodu le posterior right lung base on image 89. Pleural-based irregular lobulated no dular density in the lingula measuring 1.8 cm on image 77. PLEURA: There is a small to moderate volume left pleural effusion. Trace right pleural effus ion. HEART AND MEDIASTINUM: The right thyroid lobe is enlarged with subtle low-attenuation in focus of calcification. Recommend further evaluation with dedicated ultrasound of thyroid. 3.8 mm nodule in the left upper lobe on image 17. There are a few mildly enlarged mediastinal lymph nodes, the largest in a right precarinal region measuring 1.3 cm in short axis on image 42 series 2.. The heart is mildly enlarged. There is a small pericardial effusion. UPPER ABDOMEN: Limited non-contrast views of the upper abdomen show mildly enlarged gastric hepatic ligament lymph nodes, the largest measuring 1.1 cm in short axis on image 98. The adrenal glands are normal. BONES: There are de generative changes in the thoracic spine. SOFT TISSUES: Unremarkable. IMPRESSION: Abnormal appearance of the left lower lobe could reflect infectio us etiology such as necrotizing pneumonia in the proper clinical setting, frias heriberto, raise concern for the presence of malignant neoplasm associated with lymp hangitic locally. Numerous bilateral pulmonary nodules may represent metastasi s. Recommend pulmonology consultation Signed by: Dr. Celia larsen M.D. on 10/14/2019 7:26 PM Dictated By: DRU HARRISON MD, MD Electr onically Signed By: DRU HARRISON MD, MD on 10/14/191925 Transcribed By: COOPER NARAYANAN on 10/14/191925 COPY TO: GERMAN THORNTON MD SINUSES (PARANASAL)MIN 8AYBGX4238-52-03 18:59:00 [place] [address] Patient Name: BEBE SOTOMAYOR MR #: [id number] : 1935 Age/Sex: 83/F Req #: [id number] Adm Physician: GERMAN THORNTON MD Ordered by: GERMAN THORNTON MD Report #: [id number] Location: MED/SURG3 Room/Bed: [facility] Procedure: [id number] DX /SINUSES (PARANASAL)MIN 3VIEWS Exam Date: Exam Time : REPORT STATUS: Signed SINUSES (PARANASAL)MIN 3VIEWS - 3 views HISTORY: Pain COMPARISON: None availabl e. FINDINGS: Bones: No acute displaced fracture. The visualized paranasal sinuses are clear. Osseous alignment is within normal limits. J oints: Degenerative changes of the cervical spine. Soft tissues: The so ft tissues appear unremarkable. IMPRESSION: No acute abnormality. Signed by: Dr. Celia Harrison M.D. on 10/14/2019 7:01 PM Dictated By: DRU HARRISON MD, MD 00 COPY TO: CONY THORNTON MD CHEST XRAY LINE FLOHNOZVC0144-15-14 11:07:00 [place] [address] Patient Name: BEBE SOTOMAYOR MR #: [id number] : 1935 Age/Sex: 83/F Req #: [id number] Adm Physician: GERMAN THORNTON MD Ordered by: GERMAN THORNTON MD Report #: [id number] Location: MED/SURG3 Room/Bed: [facility] Procedure: [id number] DX /CHEST XRAY LINE PLACEMENT Exam Date: 10/14/19 Exam Time: 1030 REPORT STATUS: Signed EXAMINATION: CHEST XRAY LINE PLACEMENT INDICATION: Line placement COMPARISON: Chest radiograph 10/13/2019 FINDINGS: LINES/TUBES:I nterval placement of left PICC line, terminating at the superior cavoatrial ju nction. EKG leads overlie the chest. LUNGS:The lungs are moderately inflate d. There is left basilar opacity silhouetting the left andrei diaphragm. PL EURA:Likely small left pleural effusion. MEDIASTINUM:The heart is stably en larged. Atherosclerotic calcifications of the thoracic aorta. BONES/SOFT TISSUES:No acute osseous injury. ABDOMEN:No free air under the diaphragm. IMPRESSION: Left PICC line terminates at the superior cavoatrial junct ion. Unchanged opacity at the left lung base, possibly representing subsegm ental atelectasis versus superimposed aspiration or pneumonia. Likely sma ll left pleural effusion. Unchanged cardiomegaly. Signed by: Renetta saini MD on 10/14/2019 11:09 AM Dictated By: RENETTA RICHTER MD Electronically S igned By: RENETTA RICHTER MD on 10/14/19 1109 Transcribed By: CARLTON on 10/14/19 11 09 COPY TO: GERMAN THORNTON MD Total Zopzzheay1076-09-04 06:31:00 * Test Item Value Reference Range Interpretation Comments Total Bilirubin (test code = 1975-2) 0.7 0.2-1.2 [facility] CampusAspartate Amino Transf (AST/SGOT) 2019-10-14 06:31:00* Test Item Value Reference Range Interpretation Comments Aspartate Amino Transf (AST/SGOT) (test code = Aspartate Amino Transf (AST/SGOT)) 27 5-34 [facility] CampusAlanine Aminotransferase (ALT/SGPT) 2019-10-14 06:31:00* Test Item Value Reference Range Interpretation Comments Alanine Aminotransferase (ALT/SGPT) (test code = 1742-6) 11 0-55 [facility] CampusTotal Bzliwmw0897-81-56 06:31:00* Test Item Value Reference Range Interpretation Comments Total Protein (test code = 2885-2) 6.9 6.5-8.1 [facility] CampusAlbumin2019-12-30 06:31:00* Test Item Value Reference Range Interpretation Comments Albumin (test code = 1751-7) 3.4 3.5-5.0 L [facility] CampusGlobulin2019-12-30 06:31:00* Test Item Value Reference Range Interpretation Comments Globulin (test code = 46142-6) 3.5 2.3-3.5 [facility] CampusAlbumin/Globulin Prstg8909-52-04 06:31:00 * Test Item Value Reference Range Interpretation Comments Albumin/Globulin Ratio (test code = 1759-0) 1.0 0.8-2.0 [facility] CampusAlkaline Rczcnndazuh7421-06-00 06:31:00* Test Item Value Reference Range Interpretation Comments Alkaline Phosphatase (test code = 6768-6) 57 40-150 [facility] CampusLactic Acid Cfzpz5441-72-44 06:18:00* Test Item Value Reference Range Interpretation Comments Lactic Acid Level (test code = Lactic Acid Level) 1.1 0.5- 2.0 [facility] CampusCreatine Kinase ES7921-12-29 00:44:00* Test Item Value Reference Range Interpretation Comments Creatine Kinase MB (test code = 22079-9) 2.00 0-5.0 [facility] CampusTroponin Z7789-36-98 00:44:00* Test Item Value Reference Range Interpretation Comments Troponin I (test code = DBK2357) < 0.001 0-0.300 [facility] CampusCreatine Ufrdtn2215-19-92 00:25:00* Test Item Value Reference Range Interpretation Comments Creatine Kinase (test code = 2157-6) 59 29-168 [facility] CampusProthrombin Nelr4340-44-59 14:26:00* Test Item Value Reference Range Interpretation Comments Prothrombin Time (test code = 5902-2) 13.5 11.9-14.5 [facility] CampusProthromb Time International Ratio 2019-10-13 14:26:00* Test Item Value Reference Range Interpretation Comments Prothromb Time International Ratio (test code = 6301-6) 0.98 Oral Anticoagulant Therapy INR Values:1. Low Intensity Therapy 1.5 - 2.02 . Moderate Intensity Therapy 2.0 - 3.03. High Intensity Therapy(1) 2.5 - 3. 54. High Intensity Therapy(2) 3.0 - 4.05. Panic Value INR > 5.0 [facility] CampusActivated Partial Thromboplast Time 2019-10-13 13:25:00* Test Item Value Reference Range Interpretation Comments Activated Partial Thromboplast Time (test code = 08745-1) 27.7 23.8-35.5 [facility] CampusB-Type Natriuretic Cbacmjs4777-91-45 13:12:00* Test Item Value Reference Range Interpretation Comments B-Type Natriuretic Peptide (test code = 15384-1) 180.9 0-100 H [facility] CampusUrine PJX4235-25-18 13:09:00* Test Item Value Reference Range Interpretation Comments Urine WBC (test code = 5821-4) 6-10 0-5 H [facility] CampusUrine WCS9722-49-23 13:09:00* Test Item Value Reference Range Interpretation Comments Urine RBC (test code = 60524-2) 0-5 0-5 [facility] CampusUrine Knsnophj9007-03-95 13:09:00* Test Item Value Reference Range Interpretation Comments Urine Bacteria (test code = 75770-2) RARE NONE [facility] CampusUrine Epithelial Wowid7574-14-96 13:09:00 * Test Item Value Reference Range Interpretation Comments Urine Epithelial Cells (test code = 91571-1) FEW NONE [facility] CampusUrine Bbifc3439-75-40 12:59:00* Test Item Value Reference Range Interpretation Comments Urine Color (test code = 5778-6) YELLOW YELLOW [facility] CampusUrine Jjguefe6271-47-98 12:59:00* Test Item Value Reference Range Interpretation Comments Urine Clarity (test code = 79449-4) CLEAR CLEAR [facility] CampusUrine Specific Nnizjsw4847-53-19 12:59:00 * Test Item Value Reference Range Interpretation Comments Urine Specific [place] (test code = 5811-5) 1.010 1.010-1.02 5 [facility] CampusUrine sJ0038-78-79 12:59:00* Test Item Value Reference Range Interpretation Comments Urine pH (test code = 05550-5) 6.5 5-7 [facility] CampusUrine Leukocyte Blcqdgfb8365-79-87 12:59:00* Test Item Value Reference Range Interpretation Comments Urine Leukocyte Esterase (test code = 77577-0) TRACE NEGATIV E H [facility] CampusUrine Gkqkgbr4753-79-47 12:59:00* Test Item Value Reference Range Interpretation Comments Urine Nitrite (test code = 98386-3) NEGATIVE NEGATIVE [facility] CampusUrine Dcitsdw1354-94-39 12:59:00* Test Item Value Reference Range Interpretation Comments Urine Protein (test code = 72680-3) NEGATIVE NEGATIVE [facility] CampusUrine Glucose (UA)2019-10-13 12:59:00* Test Item Value Reference Range Interpretation Comments Urine Glucose (UA) (test code = 20554-9) NEGATIVE NEGATIVE [facility] CampusUrine Rwkudct5192-23-17 12:59:00* Test Item Value Reference Range Interpretation Comments Urine Ketones (test code = 86153-6) NEGATIVE NEGATIVE [facility] CampusUrine Rprfyodnytei9586-49-75 12:59:00* Test Item Value Reference Range Interpretation Comments Urine Urobilinogen (test code = 35810-5) 0.2 0.2-1 [facility] CampusUrine Rqatqsuwn6447-99-35 12:59:00* Test Item Value Reference Range Interpretation Comments Urine Bilirubin (test code = 1977-8) NEGATIVE NEGATIVE [facility] CampusUrine Dhjae2671-94-73 12:59:00* Test Item Value Reference Range Interpretation Comments Urine Blood (test code = 42450-7) TRACE NEGATIVE [facility] CampusMagnesium Rtczt0573-20-64 12:58:00* Test Item Value Reference Range Interpretation Comments Magnesium Level (test code = 19109-9) 1.6 1.3-2.1 [facility] CampusCHEST 2 JBSZG7107-87-44 12:39:00 [facility] [address] [place] [address] Patient Name: BEBE SOTOMAYOR MR #: [id number] : 1935 Age/Sex: 83/F Req #: [id number] Adm Physician: GERMAN THORNTON MD Ordered by: MONALISA SNELL MD Report #: [id number] [facility]: [facility] Procedure: [id number] DX/ CHEST 2 VIEWS Exam Date: 10/13/19 Exam Time: 1224 REPORT STATUS: Signed EXAMINATI ON: PA and lateral views of the chest. COMPARISON: September 27, 2019 C LINICAL HISTORY: Cough, pneumonia DISCUSSION: Lines/tubes: None . Lungs: Left lower lung airspace consolidation. Interstitial edema. Pleura: Probable left effusion. Heart and mediastinum: Heart size enlarge d. Bones and soft tissues: No acute bony abnormalities. IMPRESSI ON: Cardiomegaly with interstitial edema Left lower lung consolidation/p neumonia with probable small effusion Signed by: Dr. Meme Isidro M.D. on 10/13/2019 12:42 PM Dictated By: MEME ISIDRO MD [facility] Signed By: MEME ISIDRO MD on 10/13/19 1242 Transcribed By: CARLTON on 10/13/19 1242 COPY TO: MONALISA SNELL MD CHEST 2 [id number] 11:14:00 [place] [address] Patient Name: BEBE SOTOMAYOR MR #: [id number] : 1935 Age/Sex: 83/F Req #: [id number] Adm Physician: Ordered by: GERMAN THORNTON MD Report #: [id number] Location: [facility] Room/Bed: Procedure: [id number] DX/C HEST 2 VIEWS Exam Date: 09/27/19 Exam Time: 1034 REPORT STATUS: Signed EXAMINATION: CHEST 2 VIEWS INDICATION: Cough COMPARISON: Chest radiograph 08/17 07/04. FINDINGS: LINES/TUBES:None LUNGS:Patchy airspace opaci ty at the left lower lobe and lingula partially silhouetting the left heart iesha rder and left hemidiaphragm. Mild patchy right basilar opacity. Central vascul ar congestin without pulmonary edema. PLEURA:No pleural effusion or pneumo thorax. MEDIASTINUM:The heart is enlarged. Atherosclerotic calcifications o f the thoracic aorta. BONES/SOFT TISSUES:No acute osseous injury. AB DOMEN:No free air under the diaphragm. IMPRESSION: Similar appearance of lower lung zone opacities, left greater than right, which may represent pneum onia in the appropriate clinical setting. Recommend follow-up chest radiograph in 6-8 weeks to assess for resolution. Cardiomegaly and central vascular congestion without pulmonary edema. Signed by: Dr. Jesus Forbes MD on 2018 11:16 AM Dictated By: JESUS FORBES MD 15 Transcribed By: CARLTON on 09/27/19 111 COPY T O: GERMAN THORNTON MD CHEST 2 [id number] 11:03:00 [place] [address] Patient Name: BEBE SOTOMAYOR MR #: [id number] : 1935 Age/Sex: 83/F Req #: [id number] Adm Physician: Ordered by: GERMAN THORNTON MD Report #: [id number] Location: [facility] Room/Bed: Procedure: [id number] DX/C HEST 2 VIEWS Exam Date: 09/13/19 Exam Time: 1050 REPORT STATUS: Signed EXAMINATION: CHEST 2 VIEWS INDICATION: Cough COMPARISON: None FINDIN GS: LINES/TUBES:None LUNGS:Patchy airspace opacity at the left lower l obe and lingula partially silhouetting the left heart border and left hemidiap hragm. PLEURA:No pleural effusion or pneumothorax. MEDIASTINUM:The hea rt is enlarged. Atherosclerotic calcifications of the thoracic aorta. BON ES/SOFT TISSUES:No acute osseous injury. ABDOMEN:No free air under the diap hragm. IMPRESSION: Left lingular and lower lobe opacity concerning fo r aspiration and/or pneumonia in the proper clinical setting. Cardiomegal y. RECOMMENDATIONS: PA and lateral chest radiograph in 6-8 weeks to asses s for resolution and exclude underlying pulmonary lesion. The above findi ngs were discussed with Dr. Thornton on 09/13/2019 11:03 AM, who responded indic ating that the communication was understood. Signed by: Renetta Richter MD on 11/13/2018 11:07 AM Dictated By: RENETTA RICHTER MD 06 Transcribed By: CARLTON on 09/13/19 110 C OPY TO: GERMAN THORNTON MD
[2020-03-24] MEDS ORDERED: MORPHINE SULFATE 2 MG/ML SYR 1ML IV PRN (10:15)
[2020-03-24] MEDS ORDERED: ONDANSETRON HCL INJ 2MG/ML 2ML 2 MG/ML VIAL IV PRN (10:15)
[2020-03-24] MEDS ORDERED: PIPER-TAZ 3.375 GM 50 ML IV ONE (10:15)
[2020-03-24 10:46] LABS: BASOPHILS # (AUTO) 0.2 (0.0-0.1); BASOPHILS % 1.3 % (0.0-1.0); EOSINOPHILS # (AUTO) 0.8 (0.0-0.4); EOSINOPHILS % 6.2 % (0.0-6.0); HEMATOCRIT 30.6 % (34.2-44.1); HEMOGLOBIN 9.7 g/dL (12.0-16.0); LYMPHOCYTES # (AUTO) 0.6 (1.0-3.2); LYMPHOCYTES % 4.9 % (18.0-39.1); MEAN CORPUSCULAR HEMOGLOBIN 24.4 pg (28-32); MEAN CORPUSCULAR HGB CONC 31.7 g/dL (31-35); MEAN CORPUSCULAR VOLUME 77.1 fL (81-99); MONOCYTES # (AUTO) 1.9 (0.2-0.8); MONOCYTES % 14.7 % (4.4-11.3); NEUTROPHILS # (AUTO) 8.9 (2.1-6.9); NEUTROPHILS % 70.6 % (38.7-80.0); PLATELET COUNT 705 x10e3/uL (140-360); RED BLOOD COUNT 3.97 x10e6/uL (3.6-5.1); RED CELL DISTRIBUTION WIDTH 16.4 % (11.7-14.4)
[2020-03-24 11:06] LABS: PARTIAL THROMBOPLASTIN TIME 31.6 seconds (23.8-35.5)
--- NOTE | 2020-03-24 11:08 | Emergency Department Note ---
History of Present Illnes History of Present Illness Chief Complaint: Respiratory History of Present Illness This is a 84 year old female SOB, MOD-SEVERE RESP DISTRESS NOTED. AAYUSH AT [facility]. RECENT DX OF CANCER PER DAUGHTER AND MIXED CONNECTIVE TISSUE D/O. STAT ROOM 2 WITH RN'S AND MD. Historian: Patient, Family Member Arrival Mode: Car Telephone Service Adviser Required: No Onset (how long ago): day(s) (3) Location: LUNGS Quality: SOB Radiation: Reports non-radiation Severity: moderate Onset quality: gradual Duration (how long): day(s) (3) Timing of current episode: constant Progression: worsening Chronicity: recurrent Context: Reports recent illness (RECENT PNEUMONIA, LEFT PL EFFUSION AND HAD THORACENTESIS ~750 ML) Relieving factors: none Exacerbating factors: other (EXERTION) Associated symptoms: Reports cough, Reports malaise, Reports shortness of breath, Reports weakness Treatments prior to arrival: none Past Medical/Family History Physician Review I have reviewed the patient's past medical and family history. Any updates have been documented here. Past Medical History Recent Fever: No Clinical Suspicion of Infectio: Yes New/Unexplained Change in Ment: No Past Medical History: Hypertension, Cancer, GERD, Hyperlipedemia Other Medical History: MIXED CONNECTIVE TISSUE DISEASE Social History Smoking Cessation: Never Smoker Alcohol Use: None Any Illegal Drug Use: No TB Exposure/Symptoms: No Physically hurt or threatened: No Other Any Pre-Existing Lines (PICC,: No Is patient up to date on immun: Yes Last Flu: UTD Last Pneumovax: UTD Review of Systems Review of Systems Constitutional: Reports no symptoms EENTM: Reports no symptoms Cardiovascular: Reports no symptoms Respiratory: Reports as per HPI, Reports cough, Reports dyspnea, Reports dyspnea on exertion Gastrointestinal: Reports no symptoms Genitourinary: Reports no symptoms Musculoskeletal: Reports no symptoms Integumentary: Reports no symptoms Neurological: Reports no symptoms Psychological: Reports no symptoms Endocrine: Reports no symptoms Hematological/Lymphatic: Reports no symptoms Review of other systems All other systems reviewed and negative. Physical Exam Related Data Allergies: Coded Allergies: No Known Allergies (Unverified , 05/09/19) Triage Vital Signs Vital Signs Date Time Temp Pulse Resp B/P (MAP) Pulse Ox O2 Delivery O2 Flow Rate FiO2 03/24/20 09:54 98.9 110 30 125/85 96 6/9/20 09:57 Nasal Cannula 2.0 Vital signs reviewed: Yes Physical Exam CONSTITUTIONAL Constitutional: Reports well-developed, Reports well-nourished HENT HENT: Reports normocephalic, Reports atraumatic, Reports oropharynx clear/moist, Reports nose normal HENT L/R: Reports left ext ear normal, Reports right ext ear normal EYES Eyes: Reports PERRL, Reports conjunctivae normal NECK Neck: Reports ROM normal PULMONARY Pulmonary: Reports effort normal, Reports respiratory distress (MILD, TACHYPNEIC), Reports rhonchi (LEFT LOWER), Reports other (DECR BREATH SOUNDS 1/2 WAY UP LEFT SIDE) CARDIOVASCULAR Cardiovascular: Reports regular rhythm, Reports heart sounds normal, Reports LLE edema, Reports RLE edema GASTROINTESTINAL Abdominal: Reports soft, Reports nontender, Reports bowel sounds normal GENITOURINARY Genitourinary: Reports exam deferred SKIN Skin: Reports warm, Reports dry MUSCULOSKELETAL Musculoskeletal: Reports ROM normal NEUROLOGICAL Neurological: Reports alert, Reports oriented x 3, Reports no gross motor or sensory deficits PSYCHOLOGICAL Psychological: Reports mood/affect normal, Reports judgement normal Results Laboratory Laboratory Laboratory Tests Test 03/24/20 10:20 Lab results reviewed: Yes Imaging Imaging results reviewed: Yes Assessment & Plan Medical Decision Making MDM H/O ADENOCA LEFT LUNG WITH RECENT PNEUMONIA/PLEURAL EFFUSION S/P THORACENTESIS - CLINICALLY SOUNDS LIKE RECURRENT PNEUMONIA WITH INCR PL EFFUSION - CHECK CBC, CHEM'S, CULTURES, CXR, ECG, CARDIAC ENZYMES, BNP - EVAL PNEUMONIA, PL EFFUSION, CHF, STEMI/NSTEMI Assessment & Plan Final Impression: (1) Pneumonia (2) Pleural effusion (3) Adenocarcinoma of left lung Depart Disposition: ADMITTED Last Vital Signs Date Time Temp Pulse Resp B/P (MAP) Pulse Ox O2 Delivery O2 Flow Rate FiO2 03/24/20 10:27 105 25 124/66 98 03/24/20 09:57 Nasal Cannula 2.0 03/24/20 09:54 98.9 Home Meds Reported Medications Methylprednisolone (METHYLPREDNISOLONE) 4 Mg Tablet, 4 MG PO DAILY 05/09/19 Oxybutynin Chloride (OXYBUTYNIN CHLORIDE) 5 Mg Tablet, 10 MG PO HS, #30 TAB 05/09/19 Atorvastatin Calcium (ATORVASTATIN CALCIUM) 20 Mg Tablet, 20 MG PO HS, #30 TAB 05/09/19 [Losartan] No Conflict Check, 50 MG PO HS 05/09/19 MONALISA SNELL MD Mar 24, 2020 11:08
[2020-03-24 11:09] LABS: INR 1.07; PROTHROMBIN TIME 14.6 seconds (11.9-14.5)
[2020-03-24 11:17] LABS: ALANINE AMINOTRANSFERASE 77 IU/L (0-55); ALBUMIN 1.8 g/dL (3.5-5.0); ALBUMIN/GLOBULIN RATIO 0.4 (0.8-2.0); ALKALINE PHOSPHATASE 107 IU/L (40-150); ANION GAP 15.2 mmol/L (8-16); BLOOD UREA NITROGEN 22 mg/dL (7-26); BUN/CREATININE RATIO 29 (6-25); CALCIUM 9.2 mg/dL (8.4-10.2); CARBON DIOXIDE 21 mmol/L (22-29); CHLORIDE 101 mmol/L (98-107); CREATINE KINASE 58 IU/L (29-168); CREATININE, SERUM 0.77 mg/dL (0.57-1.11); EST GLOMERULAR FILTRATION RATE > 60 ML/MIN (60-); GLUCOSE 142 mg/dL (74-118); MAGNESIUM 1.7 MG/DL (1.3-2.1); POTASSIUM 4.2 mmol/L (3.5-5.1); SODIUM 133 mmol/L (136-145)
[2020-03-24] MEDS ORDERED: PEPCID20 MG PO (11:21)
[2020-03-24] MEDS ORDERED: SUCRALFATE1 G/10 ML PO (11:21)
[2020-03-24] MEDS ORDERED: HYDROCODONE PO (11:21)
[2020-03-24] MEDS ORDERED: BENZONATATE100 MG PO (11:21)
[2020-03-24] MEDS ORDERED: [UNRECOGNIZED DRUG - OTHER] PO (11:21)
[2020-03-24] MEDS ORDERED: PROTONIX20 MG PO (11:21)
[2020-03-24] MEDS ORDERED: CLOTRIMAZOLE10 MG PO (11:21)
[2020-03-24] MEDS ORDERED: MELOXICAM7.5 MG PO (11:21)
[2020-03-24] MEDS ORDERED: IPRATROPIU0.2 MG/1 M NEB (11:21)
[2020-03-24] MEDS ORDERED: [UNRECOGNIZED DRUG - OTHER] PO (11:21)
--- NOTE | 2020-03-24 11:22 | Diagnostic Imaging Report ---
Chest, 1 view, 03/24/2020. History: Shortness of breath. Comparison: 03/17/2020. Findings: The cardiomediastinal silhouette and pulmonary vasculature are prominent. There is dense left basilar opacification with widening of the left margin. There are no acute osseous or soft tissue abnormalities. Impression: CHF with left basilar atelectasis and moderate left pleural effusion. Signed by: [place] on 03/24/2020 11:19 AM
[2020-03-24 11:23] LABS: B-TYPE NATRIURETIC PEPTIDE2 79.3 pg/mL (0-100)
[2020-03-24] MEDS: DOXYCYCLINE 100MG/NS 100ML 100 ML IV SCH ×2 (11:30→22:50)
[2020-03-24 11:45] VITALS: BP 115/63
[2020-03-24 11:54] VITALS: BP 115/63
[2020-03-24 12:55] VITALS: BP 115/63
--- NOTE | 2020-03-24 12:58 | NUR ---
patient received from [facility] via stretcher. see admit assess. sinus rhythm. vitals sable with no distress. Dr Vilchis and Dr Easton in to see patient.
[2020-03-24 13:38] LABS: EOSINOPHILS % (MANUAL) 6 % (0-7); LYMPHOCYTES % (MANUAL) 9 % (19-48); MONOCYTES % (MANUAL) 11 % (3.4-9.0); NEUTROPHILS % (MANUAL) 74 % (40-74)
[2020-03-24 13:39] LABS: ANISOCYTOSIS SLIGHT; HYPOCHROMASIA MODERATE; POIKILOCYTOSIS SLIGHT; RBC MORPHOLOGY COMMENT NORMAL
[2020-03-24 13:40] LABS: HOWELL-JOLLY BODIES FEW; PLATELET ESTIMATE MODERATELY INCREASED; PLATELET MORPHOLOGY COMMENT FEW LARGE
[2020-03-24] MEDS ORDERED: FUROSEMIDE INJ 10 MG/ML 4 ML VIAL IV ONE (15:00)
[2020-03-24] MEDS: ALBUTEROL/IPRATROPIUM 3 ML NEB NEB SCH ×3 (15:47→23:40)
[2020-03-24 16:38] VITALS: BP 116/82
[2020-03-24] MEDS ORDERED: POTASSIUM CHLORIDE 20MEQ/100ML 100 ML IV ONE (19:30)
--- NOTE | 2020-03-24 19:34 | Consultation ---
DATE OF CONSULTATION: 03/24/2020 Cardiac Consultation REASON FOR CONSULTATION: Chest pain and enlarged cardiac silhouette. HISTORY OF PRESENT ILLNESS: An 84-year-old lady, who was doing well with the exception of mixed connective tissue disorder. She is very functional. In late September 2019, she had pneumonia which was not clear. She had x-rays and she was diagnosed with left adenocarcinoma with possible liver metastasis. She was seen and followed by Dr. Ryan. She was started on medication with good response. However, it stopped working. For that reason, she was started on new medication 4 days ago. She was having severe shortness of breath. She came to this institution on the 17 of March where she had 700 mL left thoracentesis. However, she continued to have quite a lot of shortness of breath. Repeated x-ray showed accumulation of the fluid and she was having respiratory distress, so she came to the emergency room, admitted for further management. Cardiomegaly noted on the x-ray in addition to consolidation and pleural effusion. Cardiac consultation is obtained for the respiratory distress and large cardiac silhouette. I visited with the patient, whom having really progressive worsening shortness of breath, cough, poor appetite, weight loss, and she is "not doing well" over the last few days despite the thoracentesis of 700 mL on the 17 of March. REVIEW OF SYSTEMS: GENERAL: Failure to thrive, weight loss, poor appetite. No fever, no chills. HEENT: Remarkable for marked decreased hearing. PULMONARY: As per acute illness. CARDIAC: No angina. No orthopnea. No PND. She does have chronic swelling of the lower extremity. GI: Poor appetite. No hematemesis. No melena. : No dysuria. MUSCULOSKELETAL: Aches, lower extremity edema, and `she had trauma on the side of the bed and she got small hematoma on the right robbins. NEUROLOGIC: Besides decreased hearing, there are no localized deficits. SOCIAL HISTORY: She is . She is nonsmoker and non-alcohol drinker. HOME MEDICATIONS: Include: 1. Methylprednisolone 4 mg a day. 2. Lipitor 20 mg a day. 3. Losartan 50 mg a day. 4. Oxybutynin. In addition to the oral chemotherapy, she is changed from one medication to the other, just recently after the 1st medication "stopped working." ALLERGIES: NONE LISTED. PAST MEDICAL HISTORY: 1. Mixed connective tissue disease. 2. Hypertension. 3. Hyperlipidemia. 4. GERD. 5. Pneumonia and diagnosis of left lung cancer, adenocarcinoma in September 2019. 6. Chemotherapy. 7. Thoracentesis later 03/17/2020. FAMILY HISTORY: Noncontributory. PHYSICAL EXAMINATION: VITAL SIGNS: Height of 5 feet, weight of 120 pounds, blood pressure 120/80, heart rate of 110, respiratory rate of 30, temperature of 98.9 Fahrenheit. HEENT: Pupils are reactive. Decreased hearing is noted. NECK: No elevation of jugular venous pulsation. CHEST: Crackles, rales, dullness, decreased air entry in both bases, more pronounced on the left side. ABDOMEN: Soft with no organomegaly. EXTREMITIES: There is bilateral edema. Skin changes on both lower extremity. There is dressing over the right foreleg. NEUROLOGIC: Able to move her extremity, weakness, but no localized deficit. Decreased hearing again noted. LABORATORY DATA: Chest x-ray as per report showing left pleural effusion, CHF changes. BNP is only 79. Sodium of 133, potassium 4.2, BUN 22, creatinine of 0.8. White blood cell count of 12.6, hemoglobin of 9.7, hematocrit 31%, platelet count of 705,000. CK total 58, MB elevated at 5.2, but troponin is normal. EKG showing normal sinus rate at 98 per minute with no EKG changes IMPRESSION AND PLAN: 1. Metastatic left lung adenocarcinoma, on treatment. 2. Repeated pleural effusions. 3. Respiratory distress, secondary to above. 4. No clinical signs of tamponade or significant pericardial effusion clinically. 5. Mixed connective tissue disorder. 6. Decreased hearing. 7. Debility and weight loss. From a cardiac point of view, we will continue current the patient's management. Dr. Ryan will be following her cancer. Dr. Easton is called in consultation also. We will get an echocardiogram. We will follow the patient's progression with you and would like to thank you for your kind referral. MD BHARAT Humphrey/SAMUELL /[id number]
[2020-03-24] MEDS ORDERED: POTASSIUM CHLORIDE 20 MEQ TAB CR PO ONE (19:55)
[2020-03-24 20:00] VITALS: BP 133/57
[2020-03-24] MEDS ORDERED: SODIUM CHLORIDE 0.9% 250ML 250 ML ONE (20:06)
[2020-03-24 20:57] LABS: BILIRUBIN,URINE NEGATIVE (NEGATIVE); CLARITY,URINE CLEAR (CLEAR); COLOR,URINE YELLOW (YELLOW); KETONES,URINE NEGATIVE (NEGATIVE); LEUKOCYTE ESTERASE ,URINE NEGATIVE (NEGATIVE); NITRITE,URINE NEGATIVE (NEGATIVE); PROTEIN,URINE DIPSTICK NEGATIVE (NEGATIVE); URINE UROBILINOGEN 0.2 mg/dL (0.2 - 1)
[2020-03-24 21:09] LABS: BACTERIA,URINE MODERATE /HPF
[2020-03-24 21:10] LABS: EPITHELIAL CELLS,URINE FEW /LPF
[2020-03-24 21:52] VITALS: BP 133/57
[2020-03-25] VITALS (10 sets, daily range): BP systolic 117–146; BP diastolic 55–73
[2020-03-25] MEDS: ALBUTEROL/IPRATROPIUM 3 ML NEB NEB SCH ×6 (03:00→23:00)
--- NOTE | 2020-03-25 03:21 | Consultation ---
DATE OF CONSULTATION: 03/24/2020 Pulmonary Medicine Consult REASON FOR REFERRAL: Abnormal chest radiography. HISTORY OF PRESENT ILLNESS: Ms. Romo is an 84-year-old female with known lung cancer. The patient with diagnosis on late September or early October 2019, with multifocal lung opacities. The patient was diagnosed as having lung cancer as the patient underwent on October 17, 2019, bronchoscopy and had some transbronchial lung biopsy suggesting lung adenocarcinoma. The patient was given TKI therapy by oncologist. The patient with reasonable for recently developed recurrence of pleural effusion. On March 17, 2020, the patient underwent a thoracentesis, which demonstrated 700 mL of serous fluid output. The patient in one week later had recurrence of shortness of breath and chest radiography demonstrates a larger recurrent left pleural effusion. At this point, the patient was recommended for hospitalization due to extensive shortness of breath. PAST MEDICAL HISTORY: Hypertension, hyperlipidemia, mixed connective tissue disease, on chronic Medrol 2 mg per day, lung cancer, metastatic. MEDICATIONS: Medication list per record. ALLERGIES: NO KNOWN DRUG ALLERGIES. SOCIAL HISTORY: No smoking. No drinking. No drugs. FAMILY HISTORY: Noncontributory to this condition. REVIEW OF SYSTEMS: GENERAL: Mild weight changes, weight loss. HEENT: No mouth ulcers. Ophthalmologic, no floaters. ENDOCRINE: No thyroid disorder. PULMONARY: No asthma. CARDIAC: No heart attack. GI: No constipation. : No blood in urine. DERMATOLOGIC: No rash. NEUROLOGIC: No seizures. PHYSICAL EXAMINATION: VITAL SIGNS: Afebrile, vital signs noted, reviewed per the chart record. GENERAL: In no acute distress. HEENT: Normocephalic. NECK: Supple. LUNGS: Bilateral air entry. CARDIAC: S1, S2. ABDOMEN: Soft, nontender. EXTREMITIES: No edema. INTEGUMENT: No rash. LABORATORY DATA: Labs reviewed per the chart record. Include hematocrit of 30.6, platelet . INR 1.07. 22 BUN and 0.77 creatinine. LFTs include 54 AST, 77 ALT, albumin 1.8. IMPRESSION AND PLAN: 1. Recurrent left-sided malignant pleural effusion. 2. Lung cancer, metastatic. 3. Pneumonia, postobstructive. 4. Chronic steroid use, Medrol 2 mg per day. Immunosuppressed state. 5. Hypertension. 6. Hyperlipidemia. 7. Mixed connective tissue disease. At this time, I recommend repeat pleural fluid drainage, but optimally incoordination with tunneled pleural catheter placement. I asked to perform tentatively tomorrow as they have the ultrasound equipment and operating room. The patient, thereafter, will have repeat radiography if the lungs are appropriately opens. Consideration for bronchoscopy surveillance can be done. Although, I have notes on December 14, 2019, the airways were reasonably stable from before. The left lower lobe is quite diffusely infiltrated with malignancy and therefore, the only benefit to stenting this airway to prevent a postobstructive pneumonia. The left upper lobe airway is radiographically still open and potentially airspace, but there may not be indications for early inspection as the patient's airways were previously mostly open. airways do not appear at risk of central airways obstruction. Thank you very much, Dr. Thornton for this consult. Please call for questions. MD JAZMIN Romero/GENE /[id number]
[2020-03-25 05:55] LABS: BASOPHILS # (AUTO) 0.1 (0.0-0.1); BASOPHILS % 1.1 % (0.0-1.0); EOSINOPHILS # (AUTO) 0.7 (0.0-0.4); EOSINOPHILS % 5.6 % (0.0-6.0); HEMATOCRIT 30.9 % (34.2-44.1); HEMOGLOBIN 9.7 g/dL (12.0-16.0); LYMPHOCYTES # (AUTO) 0.9 (1.0-3.2); LYMPHOCYTES % 7.2 % (18.0-39.1); MEAN CORPUSCULAR HEMOGLOBIN 24.6 pg (28-32); MEAN CORPUSCULAR HGB CONC 31.4 g/dL (31-35); MEAN CORPUSCULAR VOLUME 78.4 fL (81-99); MONOCYTES # (AUTO) 1.8 (0.2-0.8); MONOCYTES % 14.3 % (4.4-11.3); NEUTROPHILS # (AUTO) 8.6 (2.1-6.9); NEUTROPHILS % 69.8 % (38.7-80.0); PLATELET COUNT 643 x10e3/uL (140-360); RED BLOOD COUNT 3.94 x10e6/uL (3.6-5.1); RED CELL DISTRIBUTION WIDTH 16.5 % (11.7-14.4)
[2020-03-25 06:16] LABS: ALANINE AMINOTRANSFERASE 64 IU/L (0-55); ALBUMIN 1.8 g/dL (3.5-5.0); ALBUMIN/GLOBULIN RATIO 0.4 (0.8-2.0); ALKALINE PHOSPHATASE 92 IU/L (40-150); ANION GAP 15.3 mmol/L (8-16); BLOOD UREA NITROGEN 25 mg/dL (7-26); BUN/CREATININE RATIO 33 (6-25); CALCIUM 9.1 mg/dL (8.4-10.2); CARBON DIOXIDE 23 mmol/L (22-29); CHLORIDE 100 mmol/L (98-107); CREATININE, SERUM 0.75 mg/dL (0.57-1.11); EST GLOMERULAR FILTRATION RATE > 60 ML/MIN (60-); GLUCOSE 113 mg/dL (74-118); POTASSIUM 4.3 mmol/L (3.5-5.1); SODIUM 134 mmol/L (136-145)
--- NOTE | 2020-03-25 07:00 | NUR ---
RCD PT AT BED PT IS ALERT AND ORIENTED RESTING ON BED IV PATENT BY SALINE FLUSH PT NPO AFTER BREAK FAST FOR PROCEDURE FAMILY AT BED SIDE BED LOW AND LOCKED CALL LIGHT IN REACH
[2020-03-25] MEDS ORDERED: FUROSEMIDE INJ 10 MG/ML 4 ML VIAL IV SCH (09:00)
[2020-03-25] MEDS ORDERED: PANTOPRAZOLE 40 MG 10ML VIAL IV SCH (09:00)
[2020-03-25] MEDS: DOXYCYCLINE 100MG/NS 100ML 100 ML IV SCH ×2 (09:00→21:10)
[2020-03-25] MEDS ORDERED: ONDANSETRON HCL 4 MG ORAL DISINTEGRATING TAB PO PRN (12:30)
--- NOTE | 2020-03-25 14:23 | NUR ---
Pulmonary Medicine DATE 03/25/2020 SUBJECTIVE: Some SOB in night. Remains on telemetry Discussed with radiologist, tentative Pleurx catheter insertion today REVIEW OF SYSTEMS: NO BLEEDING, NO CHEST PAIN PHYSICAL EXAMINATION: VITAL SIGNS: vital signs noted, reviewed per the chart record. GENERAL: In no acute distress. HEENT: Normocephalic. NECK: Supple. LUNGS: Bilateral air entry. CARDIAC: S1, S2. ABDOMEN: Soft, nontender. EXTREMITIES: No edema. INTEGUMENT: No rash. LABORATORY DATA: 4.3 k, cr 0.;75, wbc 12, hct 31, plt 643. IMPRESSION AND PLAN: 1. Recurrent left-sided malignant pleural effusion. 2. Lung cancer, metastatic. 3. Pneumonia, postobstructive. 4. Chronic steroid use, Medrol 2 mg per day. Immunosuppressed state. 5. Hypertension. 6. Hyperlipidemia. 7. Mixed connective tissue disease. Get PleurX catheter insertion today, ~ 2 pm NPO for now Need to order supplies once Pleurx is placed Training on drainage procedure for the family Repeat CXR after catheter insertion and drainage. On antibiotics Thank you very much, Dr. Thornton for this consult. Please call for questions.
[2020-03-25] MEDS ORDERED: MIDAZOLAM HCL 2 MG/2 ML VIAL ONE (14:24)
[2020-03-25] MEDS ORDERED: FENTANYL CITRATE/PF 100MCG/2 ML INJ ONE (14:24)
--- NOTE | 2020-03-25 14:35 | NUR ---
PT WENT TO PROCEDURE IN SAFE CONDITION
[2020-03-25] MEDS ORDERED: SODIUM CHLORIDE 0.9% 250ML 250 ML ONE (14:56)
[2020-03-25] MEDS ORDERED: PIPER-TAZ 3.375 GM 50 ML IV SCH (15:00)
--- NOTE | 2020-03-25 16:10 | NUR ---
PATIENT BACK AFTER PROCEDURE PT IS ALERT AND ORIENTED VITALS CHECKED PT RESTING ON BED NO SIGNS OF BLEEDING OR LEAKING ON THE CATHETER SITE ( 15.5 FR CATHETER) LEFT UPPER BACK , DRAINED 850 ML OF CADE COLOR AND CAPED THE TUBE ,BED LOW AND LOCKED CALL LIGHT IN REACH
[2020-03-25] MEDS: PIPER-TAZ 3.375 GM 50 ML IV SCH (17:47)
--- NOTE | 2020-03-25 17:53 | NUR ---
FAMILY REQUESTED SOME MEDICATION TO SLEEP SO PAGED DR Memo LISA TO NOTIFY THAT
--- NOTE | 2020-03-25 17:55 | NUR ---
DR LISA RETURNED THE CALL AND GOT NEW ORDERS
--- NOTE | 2020-03-25 18:35 | NUR ---
DC TELEY BY ORDER
--- NOTE | 2020-03-25 18:42 | NUR ---
PT RESTING ON BED BED SIDE REPORT GIVEN TO ONCOMING NURSE
--- NOTE | 2020-03-25 18:58 | NUR ---
RECEIVED THE PATIENT IN REPORT.LYEING IN THE BED.STABLE CONDITION.FAMILY MEMBER AT BED SIDE.
--- NOTE | 2020-03-25 20:40 | NUR ---
Assessment done.no resp.distress.iv changed to left wrist#22 g.patent.ambulates with assistance.voided.on o2 2 litre nasal cannula.bed locked and in lowest position.phone and call light within reach.instructed to call for assistance as needed.covid 19 test is pending.notified to sewing room supervisor.
[2020-03-25] MEDS ORDERED: TEMAZEPAM 7.5 MG CAP PO PRN (21:00)
--- NOTE | 2020-03-25 22:30 | NUR ---
ORDERED TO ADMINISTER DILAUDID 0.5 MG IV Q3H PRN.IMPLEMENTED.
[2020-03-25] MEDS: ONDANSETRON HCL INJ 2MG/ML 2ML 2 MG/ML VIAL IV PRN (22:33)
[2020-03-25] MEDS: HYDROMORPHONE 1MG/1ML INJ IV PRN (22:34)
[2020-03-26] VITALS (8 sets, daily range): BP systolic 107–152; BP diastolic 57–82
[2020-03-26] MEDS: PIPER-TAZ 3.375 GM 50 ML IV SCH ×4 (00:11→18:15)
[2020-03-26] MEDS: ALBUTEROL/IPRATROPIUM 3 ML NEB NEB SCH ×6 (03:00→23:00)
[2020-03-26 06:06] LABS: BASOPHILS # (AUTO) 0.1 (0.0-0.1); BASOPHILS % 1.1 % (0.0-1.0); EOSINOPHILS # (AUTO) 0.7 (0.0-0.4); EOSINOPHILS % 7.2 % (0.0-6.0); HEMATOCRIT 32.4 % (34.2-44.1); HEMOGLOBIN 9.7 g/dL (12.0-16.0); LYMPHOCYTES # (AUTO) 1.1 (1.0-3.2); MEAN CORPUSCULAR HEMOGLOBIN 24.1 pg (28-32); MEAN CORPUSCULAR HGB CONC 29.9 g/dL (31-35); MEAN CORPUSCULAR VOLUME 80.4 fL (81-99); MONOCYTES # (AUTO) 1.6 (0.2-0.8); MONOCYTES % 15.3 % (4.4-11.3); NEUTROPHILS # (AUTO) 6.4 (2.1-6.9); NEUTROPHILS % 63.4 % (38.7-80.0); PLATELET COUNT 619 x10e3/uL (140-360); RED BLOOD COUNT 4.03 x10e6/uL (3.6-5.1)
[2020-03-26 06:30] LABS: ANION GAP 16.3 mmol/L (8-16); BLOOD UREA NITROGEN 27 mg/dL (7-26); BUN/CREATININE RATIO 35 (6-25); CALCIUM 9.1 mg/dL (8.4-10.2); CARBON DIOXIDE 21 mmol/L (22-29); CHLORIDE 102 mmol/L (98-107); CREATININE, SERUM 0.78 mg/dL (0.57-1.11); EST GLOMERULAR FILTRATION RATE > 60 ML/MIN (60-); GLUCOSE 108 mg/dL (74-118); POTASSIUM 4.3 mmol/L (3.5-5.1); SODIUM 135 mmol/L (136-145)
--- NOTE | 2020-03-26 07:00 | NUR ---
BEDSIDE SHIFT REPORT RECEIVED FROM SQUEEZER OPERATOR RN. PT DENIES NEEDS AT THIS TIME.
--- NOTE | 2020-03-26 07:06 | NUR ---
BED SIDE SHIFT REPORT GIVEN TO ONCOMING RN.STABLE CONDITION.
[2020-03-26] MEDS: PANTOPRAZOLE SOD 40 MG TABEC PO SCH (08:09)
[2020-03-26] MEDS: DOXYCYCLINE 100MG/NS 100ML 100 ML IV SCH ×2 (09:11→21:20)
--- NOTE | 2020-03-26 11:24 | NUR ---
Called and spoke to Annmarie at [facility]. States she has everything that she needs from [facility]. They will reach out to pt/family and set up delivery to pt's house.
[2020-03-26] MEDS ORDERED: MAGNESIUM HYDROXIDE 30 ML UDC PO ONE (11:30)
--- NOTE | 2020-03-26 12:39 | NUR ---
Pulmonary Medicine DATE 03/26/2020 SUBJECTIVE: patient with pleurx catheter placed yesterday 850 cc output, mostly unremarkable appearing fluild some pain around operative site REVIEW OF SYSTEMS: no headaches PHYSICAL EXAMINATION: VITAL SIGNS: vital signs noted, reviewed per the chart record. GENERAL: NAD HEENT: Normocephalic. NECK: Supple. LUNGS: Bilateral air entry. CARDIAC: S1, S2. ABDOMEN: Soft, nontender. EXTREMITIES: No edema. INTEGUMENT: No rash. LABORATORY DATA: k 4.3, cr 0.78, wbc 10, hct 32, plt 619 IMPRESSION AND PLAN: 1. Recurrent left-sided malignant pleural effusion. 2. Lung cancer, metastatic. 3. Pneumonia, postobstructive. 4. Chronic steroid use, Medrol 2 mg per day. Immunosuppressed state. 5. Hypertension. 6. Hyperlipidemia. 7. Mixed connective tissue disease. PleurX place Await authorization of supplies for Pleurx Training on drainage procedure for the family Repeat CXR today, ensure lung is reasonably open Mobilize On antibiotics, WBC normalized Thank you very much, Dr. Thornton for this consult. Please call for questions.
[2020-03-26 12:45] LABS: EOSINOPHILS % (MANUAL) 10 % (0-7); LYMPHOCYTES % (MANUAL) 10 % (19-48); MONOCYTES % (MANUAL) 8 % (3.4-9.0); NEUTROPHILS % (MANUAL) 72 % (40-74)
[2020-03-26 12:46] LABS: ANISOCYTOSIS SLIGHT; HYPOCHROMASIA SLIGHT; PLATELET ESTIMATE MODERATELY INCREASED; PLATELET MORPHOLOGY COMMENT RARE EDTA CLUMPING; RBC MORPHOLOGY COMMENT NORMAL
--- NOTE | 2020-03-26 13:46 | Diagnostic Imaging Report ---
EXAMINATION: CHEST SINGLE (PORTABLE) INDICATION: Pleural effusion COMPARISON: Chest radiograph of 03/24/2020 FINDINGS: LINES/TUBES:Left basilar tunneled Pleurx chest tube in place. LUNGS:The right lung is well-inflated. Left lung is moderately inflated. Unchanged left basilar patchy opacities. PLEURA:Small left pleural effusion, decreased from prior study of 03/24/2020. No pneumothorax. MEDIASTINUM:Cardiomediastinal silhouette is stably enlarged. BONES/SOFT TISSUES:No acute osseous injury. ABDOMEN:No free air under the diaphragm. IMPRESSION: Interval decrease in size of left pleural effusion, now small. Left basilar tunneled Pleurx catheter in place. Left basilar opacities, most likely subsegmental atelectasis. Unchanged cardiomegaly. Signed by: Perfecto White MD on 03/26/2020 1:43 PM
--- NOTE | 2020-03-26 14:56 | NUR ---
Nutrition Intervention Note RD Recommendation(s) for Physician: The patient meets criteria for MODERATE protein-calorie malnutrition. -Rec adding Ensure BID to promote protein-calorie intake -Downgrade diet texture to pureed for better tolerance -Consult FOOD SERVICE CASHIER for swallow evaluation (reported swallowing difficulty) -Encourage PO and assist with feeding Plan of Care: RD following, monitoring for tolerance and adequacy, ONS rec Nutrition reason for involvement: Nutrition risk trigger MST RD Assessment 03/26 84yo F, who was admitted recurrent left-sided malignant pleural effusion and PNA. Visited pt in the room. Daughter on bedside answered all questions. Pt lives with daughter at home and walks independently. She was diagnosed with lung cancer in September 2019. Per daughter, pt has been eating less than usual since October 2019. Daughter noted pt is having chewing/swallowing difficulty and usually eats a pureed diet at home. No complain of nausea or vomiting. Daughter doesnt think that pt has lost too much weight, maybe 2-3lbs in 1 week. Communicated POC with SALOMÓN Bal. Diet and ONS has been ordered. Will continue to follow. Principal Problems/Diagnoses: 1. Recurrent left-sided malignant pleural effusion. 2. Lung cancer, metastatic. 3. Pneumonia, postobstructive. 4. Chronic steroid use, Medrol 2 mg per day. Immunosuppressed state. PMH: Hypertension, hyperlipidemia, mixed connective tissue disease, on chronic Medrol 2 mg per day, lung cancer, metastatic. I/O: reviewed GI: soft, non-tender abdomen, LBM 3 days ago Skin: no pressure ulcer noted Labs: (03/26) Na 135 L, BUN 27 H Meds: protonix, doxyclycline Ht: 60in Wt: 118lb BMI: 23.0kg/m2 IBW: 100lb +/- 10% Malnutrition Evaluation (03/26/2020) The patient meets criteria for MODERATE protein-calorie malnutrition. Energy intake: <75% of estimated energy requirements for >3 months Weight loss: 1-2% in 1 week (Acute) Fat loss: Moderate - hollow around orbital region Muscle loss: Moderate - temporal depression Supporting Evidence: Fluid accumulation: no accumulation identified Functional Status: walks independently but weaker than usual reported by pts daughter Nutrition Prescription (Diet Order): cardiac diet Estimated Nutritional Needs: Calories: 1590 1855kcal (30-35kcal/kg/d) Weight used: CBW Protein: 64 80g(1.2-1.5g/kg/d) Weight used: CBW Diet Adequacy: Not meeting calorie needs, Not meeting protein needs Tolerance: Tolerating PO Diet Education Needs Assessment: Diet education not indicated. Nutrition Care Level: moderate Nutrition Diagnosis: Swallowing/chewing difficulty related to cancer on chemotherapy as evidenced by pt requiring diet texture modification. Goal: Patient will meet 75-100% of estimated needs by follow up Progress: N/A new admit Interventions: Texture-modified diet, Commercial beverage, Collaboration with other providers Monitoring/Evaluation: Total energy intake, Total protein intake, Modified diet, Liquid supplement, Weight change Signed: Ynes Patterson, MS, RD, LD
[2020-03-26] MEDS: HYDROMORPHONE 1MG/1ML INJ IV PRN (22:34)
[2020-03-26] MEDS: ONDANSETRON HCL INJ 2MG/ML 2ML 2 MG/ML VIAL IV PRN (22:34)
--- NOTE | 2020-03-26 22:35 | NUR ---
Assessment done.no resp.distress.gen.pain voiced.medicated with dilaudid 0.5 mg iv.family member at bed side.stable condition.bed locked and in lowest position.phone and call light within reach.instructed to call for assistance as needed.
[2020-03-27] VITALS: BP 130/58
[2020-03-27] MEDS: PIPER-TAZ 3.375 GM 50 ML IV SCH ×3 (00:33→12:58)
[2020-03-27] MEDS: ALBUTEROL/IPRATROPIUM 3 ML NEB NEB SCH ×3 (03:00→11:00)
[2020-03-27 04:00] VITALS: BP 127/67
[2020-03-27 06:02] LABS: BASOPHILS # (AUTO) 0.1 (0.0-0.1); BASOPHILS % 0.6 % (0.0-1.0); EOSINOPHILS # (AUTO) 0.4 (0.0-0.4); EOSINOPHILS % 3.6 % (0.0-6.0); HEMATOCRIT 30.4 % (34.2-44.1); HEMOGLOBIN 9.3 g/dL (12.0-16.0); LYMPHOCYTES # (AUTO) 0.7 (1.0-3.2); LYMPHOCYTES % 6.5 % (18.0-39.1); MEAN CORPUSCULAR HEMOGLOBIN 24.6 pg (28-32); MEAN CORPUSCULAR HGB CONC 30.6 g/dL (31-35); MEAN CORPUSCULAR VOLUME 80.4 fL (81-99); MONOCYTES # (AUTO) 1.3 (0.2-0.8); MONOCYTES % 11.7 % (4.4-11.3); NEUTROPHILS # (AUTO) 8.5 (2.1-6.9); NEUTROPHILS % 76.6 % (38.7-80.0); PLATELET COUNT 618 x10e3/uL (140-360); RED BLOOD COUNT 3.78 x10e6/uL (3.6-5.1); RED CELL DISTRIBUTION WIDTH 16.7 % (11.7-14.4)
[2020-03-27 06:51] LABS: ANION GAP 13.6 mmol/L (8-16); BLOOD UREA NITROGEN 27 mg/dL (7-26); BUN/CREATININE RATIO 38 (6-25); CALCIUM 9.1 mg/dL (8.4-10.2); CARBON DIOXIDE 26 mmol/L (22-29); CHLORIDE 102 mmol/L (98-107); CREATININE, SERUM 0.71 mg/dL (0.57-1.11); EST GLOMERULAR FILTRATION RATE > 60 ML/MIN (60-); GLUCOSE 126 mg/dL (74-118); POTASSIUM 4.6 mmol/L (3.5-5.1); SODIUM 137 mmol/L (136-145)
--- NOTE | 2020-03-27 07:00 | NUR ---
BEDSIDE SHIFT REPORT RECEIVED FROM REGULAR SENIOR CARE PROVIDER RN. PT DENIES NEEDS AT THIS TIME.
--- NOTE | 2020-03-27 07:08 | NUR ---
Bed side shift report given to oncoming RN.stable condition.
[2020-03-27 08:00] VITALS: BP 119/66
[2020-03-27] MEDS: PANTOPRAZOLE SOD 40 MG TABEC PO SCH (08:30)
[2020-03-27] MEDS: DOXYCYCLINE 100MG/NS 100ML 100 ML IV SCH (08:30)
[2020-03-27 09:50] VITALS: BP 119/66
--- NOTE | 2020-03-27 09:50 | NUR ---
DAPHNEY called [facility] and spoke to Annmarie. States they have reached out to family and was told that pt will be going home with home health. Annmarie states that for pt's insurance, they are unable to order pleurx catheter kits if she has home health. Home health would have to provide that. Spoke to Dr. Thornton who gave order for home health. CM to pt's bedside. Received choice from pt's daughter Kylie for [facility]. Signed choice letter placed in front of chart. Copy to pt's daughter. IMM letter discussed. She verbalized understanding. Signed copy placed in chart. Copy to daughter. Referral faxed to [facility] at [phone] / . CM called and spoke to Kelsea at [facility]. Informed of referral. Kelsea also stated that they can order the pleurx catheter kits and should be able to get it in by tomorrow. Informed her that plan is to discharge today. Kelsea states they will be able to see pt tomorrow. Nursing to provide teaching on pleurx catheter care prior to discharge.
--- NOTE | 2020-03-27 10:27 | NUR ---
PT WORKED WITH PT AND STATED THAT PT BECAME FATIGUED WITH O2. THIS NURSE PUT IN FOR A HOME O2 EVAL.
--- NOTE | 2020-03-27 10:39 | Diagnostic Imaging Report ---
EXAMINATION: CHEST SINGLE (PORTABLE) INDICATION: Pneumonia COMPARISON: Chest radiograph 03/26/2020 FINDINGS: LINES/TUBES:Left basilar tunneled Pleurx catheter. LUNGS:The right lung is moderately inflated. Left lung volume is low. Unchanged left basilar patchy opacity. PLEURA:Unchanged small left pleural effusion. No pneumothorax. MEDIASTINUM:Cardiomediastinal silhouette is stably enlarged. BONES/SOFT TISSUES:No acute osseous injury. ABDOMEN:No free air under the diaphragm. IMPRESSION: No significant interval change. Signed by: Perfecto White MD on 03/27/2020 10:36 AM
--- NOTE | 2020-03-27 11:40 | NUR ---
Received call from Kelsea at [facility]. States family wants to hold off on home health for now and to go ahead and continue with pleurex cath order from [facility]. DAPHNEY called Dr. Thornton to confirm. He stated to go ahead and order from [facility] and they will set up home health at a later time. Also states to order oxygen if pt qualifies. DAPHNEY called and spoke with Shaista at [facility]. Informed her that pt's home health will be put on hold for now and to proceed with order. She states she will reach out to family now.
[2020-03-27 11:55] VITALS: BP 158/64
--- NOTE | 2020-03-27 13:03 | NUR ---
Spoke with pt's daughter at bedside regarding home oxygen. States to use any company. Choice letter signed for [facility]. Signed copy placed in chart. Copy to pt. Per daughter Kylie, she has not heard from [facility] rep today. She asked to give [facility]'s information so they can call him. CM informed will call and follow up. CM called [facility] [phone] and spoke to Arlene. Informed her that pt's family has not gotten a call from them. Informed her pt is to discharge today. States their rep Jenifer will call family. Home oxygen referral was faxed to [facility] at [phone]. Abhinav kelley [facility] was notified of referral and will deliver portable tank to bedside.
--- NOTE | 2020-03-27 14:30 | NUR ---
TEACHING WITH PT'S DAUGHTER ON USING PLEURX DRAIN TO CHEST TUBE CATH. STEPS WALKED THRU WITH DAUGHTER WHO PERFORMED THE DRAINAGE. PERFORMED PERFECTLY WITH NO ISSUES. Addendum: 03/27/20 at 1722 by Ranulfo Calderón RN 450 CC CLEAR BLOOD TINGED FLUID DRAINED.
--- NOTE | 2020-03-27 16:52 | NUR ---
Nutrition Intervention Note RD Recommendation(s) for Physician: The patient meets criteria for MODERATE protein-calorie malnutrition. - Continue Ensure Enlive BID to promote protein-calorie intake - Continue pureed diet as tolerated - Encourage PO intake and assist with feeding Plan of Care: RD following, monitoring for tolerance and adequacy, ONS rec Nutrition reason for involvement: consult RD Assessment 03/27: RD received consult. Pt is now on a pureed diet. Followed up with family member at bedside who reported pt is tolerating the pureed diet and is drinking the Ensure nutrition supplements ordered. Family member did not have any questions at time of visit and declined the need for diet education for the patient. Will continue to monitor. 03/26 84yo F, who was admitted recurrent left-sided malignant pleural effusion and PNA. Visited pt in the room. Daughter on bedside answered all questions. Pt lives with daughter at home and walks independently. She was diagnosed with lung cancer in September 2019. Per daughter, pt has been eating less than usual since October 2019. Daughter noted pt is having chewing/swallowing difficulty and usually eats a pureed diet at home. No complain of nausea or vomiting. Daughter doesnt think that pt has lost too much weight, maybe 2-3lbs in 1 week. Communicated POC with SALOMÓN Bal. Diet and ONS has been ordered. Will continue to follow. Principal Problems/Diagnoses: 1. Recurrent left-sided malignant pleural effusion. 2. Lung cancer, metastatic. 3. Pneumonia, postobstructive. 4. Chronic steroid use, Medrol 2 mg per day. Immunosuppressed state. PMH: Hypertension, hyperlipidemia, mixed connective tissue disease, on chronic Medrol 2 mg per day, lung cancer, metastatic. I/O: reviewed GI: flat, non-tender abdomen, LBM 03/26 Skin: no pressure ulcer noted Labs: 03/27: BUN 27 (03/26) Na 135 L, BUN 27 H Meds: antibiotic, zofran Ht: 60in Wt: 118lb BMI: 23.0kg/m2 IBW: 100lb +/- 10% Malnutrition Evaluation (03/26/2020) The patient meets criteria for MODERATE protein-calorie malnutrition. Energy intake: <75% of estimated energy requirements for >3 months Weight loss: 1-2% in 1 week (Acute) Fat loss: Moderate - hollow around orbital region Muscle loss: Moderate - temporal depression Supporting Evidence: Fluid accumulation: no accumulation identified Functional Status: walks independently but weaker than usual reported by pts daughter Nutrition Prescription (Diet Order): cardiac diet/pureed with Ensure Enlive nutrition supplement Estimated Nutritional Needs: Calories: 1590 1855kcal (30-35kcal/kg/d) Weight used: CBW Protein: 64 80g (1.2-1.5g/kg/d) Weight used: CBW Diet Adequacy: Not meeting calorie needs, Not meeting protein needs Tolerance: Tolerating PO Diet Education Needs Assessment: Family member declined the need for diet education for the patient at time of visit Nutrition Care Level: moderate Nutrition Diagnosis: Swallowing/chewing difficulty related to cancer on chemotherapy as evidenced by pt requiring diet texture modification. Goal: Patient will meet 75-100% of estimated needs by follow up Progress: progressing Interventions: Texture-modified diet, Commercial beverage, Collaboration with other providers Monitoring/Evaluation: Total energy intake, Total protein intake, Modified diet, Liquid supplement, Weight change Signed: Kristen Pineda RD, LD
--- NOTE | 2020-03-27 17:09 | Progress Note ---
DATE: Pulmonary Critical Care Progress Note SUBJECTIVE: Daughter received instructions on the PleurX catheter. The patient denies any pain at the operative site. There is no fever. PHYSICAL EXAMINATION: VITAL SIGNS: The patient is afebrile. The vital signs are stable. HEENT: Shows no facial swelling or erythema. CARDIAC: Reveals regular rate and rhythm with normal S1 and S2. LUNGS: Auscultation of lungs shows decreased breath sounds at the bases. There is no wheezing. ABDOMEN: Soft and nontender. There is no rebound or guarding. EXTREMITIES: Shows no leg edema or calf tenderness. There is a PleurX catheter on the left side. LABORATORY DATA: White blood cell count is 11.1 and hemoglobin is 9.3. The platelet count is 618. The BUN to creatinine ratio is normal. The other electrolytes are within normal limits. IMPRESSION: 1. Recurrent left-sided malignant pleural effusion. 2. Lung cancer. 3. Hypertension. 4. Mixed connective-tissue disease. PLAN: 1. Discharge home with home health. 2. Family has received training on PleurX catheter. 3. Followup with Dr. Easton as well as Dr. Thornton as an outpatient. Robson Foster MD LMH/GENE /[id number]
--- NOTE | 2020-04-20 22:28 | Discharge Summary ---
CHIEF COMPLAINT: Several-day history of increasing shortness of breath and fatigue. FINAL DIAGNOSES: Cancer of lung. DISPOSITION: Home. 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 No other complaints other than coughing. The patient was evaluated further in the ER and following the review of the data, impression was made of shortness of breath, cough, CA lung, hypertension, anemia, and MCTD. The patient will be on nebulizer treatments, supplemental O2, requesting a Hematology/Oncology followup, Cardiology. With admission, the patient was seen by Cardiology regarding the issues of chest pain with findings of enlarged cardiac silhouette on x-ray and following Dr. Vilchis's evaluation, impression was made of metastatic left lung adenocarcinoma, currently on treatment. Repeated pleural effusions. Respiratory distress secondary to above. No clinical signs of tamponade or significant pericardial effusion clinical. Mixed connective tissue disorder, decreased hearing, debility, and weight loss. We will continue the patient's current management from a cardiac standpoint. Dr. Ryan will be following her cancer issues. Pulmonary will be addressed by Dr. Easton. She was seen by Dr. Easton regarding the abnormal chest x-rays as well as issues of shortness of breath and following his review of the patient, his findings were recurrent left-sided malignant pleural effusion, lung cancer metastatic, pneumonia postobstructive, chronic steroid use Medrol 2 mg per day immunosuppressed state, hypertension, hyperlipidemia, mixed connective tissue disease. Currently, we will recommend repeat pleural fluid drain, but optimally incoordination with a tunneled pleural catheter placement. We will tentatively set this to perform with ultrasound, consideration for bronchoscopy surveillance can be done. The left lower lobe was quite diffusely infiltrated with malignancy and therefore the only benefit to stenting this airway will be to prevent a postobstructive pneumonia. The patient was admitted, placed on the Med-Surg floor, began her care. Undergone review also with Dr. Ryan, oncologist. Medications were started. Her laboratory studies were being followed. Vital signs are being followed well. She was still having issues of shortness of breath and no chest pain. The antibiotics were continuing. She was receiving respiratory rehab. She was showing evidence of anemia, constipation as well also was developing and she was placed onto bowel cleansing protocols. She began to be resting comfortably. She was feeling better overall. Discussions were being put in place for discharge with home health. She will be needing assistance with home O2. This will be assisted by case management. She reached her potential recovery and she was able to be discharged home on 03/27 in stable condition. IMAGING: Initial chest x-ray shows congestive heart failure with left basilar atelectasis and moderate left pleural. Followup chest x-rays were carried out during her stay for comparison and her final study was on 03/27. Result shows no significant interval change when compared. Cultures shows urine was negative, blood cultures were negative. CBC on the patient was showing initial white cell count to be elevated at 12,500. White cell counts fell to 10,100, final study was 11,100. Initial H and H were 9.7 and 30.6. H and H have remained basically the same throughout the stay. Final study 9.3 to 30.4. Platelets were stable. Urinalysis essentially unremarkable. There was some moderate amount of bacteria noted. Chemistries; initial panel, electrolytes stable. Glucose 142. AST was 54 and ALT 74. Troponin I was normal. Followup electrolytes continued to be stable. Kidney functions were stable. Glucose levels were stable. Followup AST was 53. Followup ALT was 64. CEA level was noted to be 38. The patient was cleared for discharge and was able to be released home with home health on 03/27/2020. With discharge, the daughter was instructed on using the pleural drain and the chest tube catheter education, steps with walker with the daughter, advised to perform the drainage with supervision. It was noted that she performed these protocols perfectly with no issues. She was denying any pain at the operative site. There is no fever. We will be addressing DME with [facility] to set the patient up with home health and orders were also stated to order oxygen for home due to the patient followup on. The patient will continue on diet as tolerated, will be on the chest tube drain, which will be managed by the daughter. Questions or concerns will be addressed apparently by the daughter, both by home health. She will continue on benzonatate 100 mg p.o. t.i.d., Zykadia 150 mg 3 tablets p.o. daily, clotrimazole 2 tablets p.o. t.i.d., Pepcid 40 mg p.o. at bedtime, nebulizer treatments t.i.d., meloxicam 15 mg p.o. daily, methylprednisolone 4 mg p.o. daily, Protonix 40 mg p.o. daily, sucralfate 10 mL p.o. before meals, losartan 50 mg p.o. at bedtime, hydrocodone 5 mg p.o. q.12. We also will be maintaining some outpatient Oncology followup with Dr. Ryan. Dictated by ARIA Maldonado Magnus Thornton MD CC/MODL /[id number]
== END 2020-03-27 16:05 | disposition home health service (06) | DRG 180 ==
LOC: ER 09:48 → ERHOLD 10:06 → MED/SURG2 11:43
PROC: 0W9B30Z Drainage of Left Pleural Cavity with Drainage Device, Percutaneous Approach (ICD-10-PCS; principal; 2020-03-25)
DX: C34.32 Malignant neoplasm of lower lobe, left bronchus or lung (principal); J18.9 Pneumonia, unspecified organism; C78.7 Secondary malignant neoplasm of liver and intrahepatic bile duct; J91.0 Malignant pleural effusion; M35.1 Other overlap syndromes; E78.5 Hyperlipidemia, unspecified; K21.9 Gastro-esophageal reflux disease without esophagitis; R06.03 Acute respiratory distress; R53.81 Other malaise; Z79.52 Long term (current) use of systemic steroids; D63.8 Anemia in other chronic diseases classified elsewhere; E88.09 Other disorders of plasma-protein metabolism, not elsewhere classified; I11.0 Hypertensive heart disease with heart failure; I50.9 Heart failure, unspecified; Z79.899 Other long term (current) drug therapy
CPT/HCPCS: 36415; 71045; 74470; 80048; 80053; 81001; 82378; 82550; 82553; 83605; 83735; 83880; 84484; 85025; 85610; 85730; 87040; 87086; 87635; 93005; 93306; 94640; 94760; 97139; 99152; 99153; 99251; 99284; J1170; J1940; J2250; J2405; J2543; J3010; J3480; J7050